=== PATIENT | female | born 1940 | race Caucasian/White ===

== ENCOUNTER 2017-09-30 12:24 | Emergency (ER) | payer BC ==
[2017-09-30 12:33] VITALS: BP 122/72
--- NOTE | 2017-09-30 12:44 | UC ---
Complaint Female HPI - HPI Summary HPI Summary: 77 yo female with the onset of urinary frequency and LOW BACK PAIN yesterday no f/c no abd pain no vag d/c no n/v - History Of Current Complaint Chief Complaint: UCGU Stated Complaint: FREQUENT URINATION, AND BACK PAIN Time Seen by Provider: 09/30/17 12:30 Hx Obtained From: Patient Onset/Duration: Gradual Onset, Lasting Hours Timing: Constant Severity Initially: Mild Severity Currently: Mild Pain Intensity: 4 Pain Scale Used: 0-10 Numeric Character: Dull Aggravating Factor(s): Nothing Associated Signs And Symptoms: Positive: Back Pain - Allergies/Home Medications Allergies/Adverse Reactions: Allergies Allergy/AdvReac Type Severity Reaction Status Date / Time Ibuprofen Allergy Severe "THE Verified 09/30/17 12:33 DOCTOR TOLD ME NOT TO TAKE IT" Home Medications: Home Medications Acetaminophen [Tylenol] 650 mg PO Q6H PRN 09/30/17 [History Confirmed 09/30/17] PMH/Surg Hx/FS Hx/Imm Hx Cardiovascular History: Hypertension Neurological History: CVA - Surgical History Surgical History: Yes Surgery Procedure, Year, and Place: knee surgery, skin cancer removal, TUBAL LIGATION - Family History Known Family History: Positive: Cardiac Disease, Hypertension - Social History Alcohol Use: None Substance Use Type: None Smoking Status (MU): Never Smoked Tobacco - Immunization History Most Recent Influenza Vaccination: fall 2016 Most Recent Tetanus Shot: unk Most Recent Pneumonia Vaccination: unk Review of Systems Constitutional: Negative Skin: Negative Eyes: Negative ENT: Negative Respiratory: Negative Cardiovascular: Negative Gastrointestinal: Negative Genitourinary: Frequency Motor: Negative Neurovascular: Negative Musculoskeletal: Myalgia - low back pain Neurological: Negative Psychological: Negative Is Patient Immunocompromised?: No All Other Systems Reviewed And Are Negative: Yes Physical Exam Triage Information Reviewed: Yes Appearance: Well-Appearing, No Pain Distress, Well-Nourished Vital Signs: Initial Vital Signs Temp 98.4 F 09/30/17 12:29 Pulse 64 09/30/17 12:29 Resp 16 09/30/17 12:29 BP 122/72 09/30/17 12:29 Pulse Ox 98 09/30/17 12:29 Eyes: Positive: Conjunctiva Clear ENT: Positive: Hearing grossly normal. Negative: Nasal congestion, Nasal drainage, Dental tenderness, Sinus tenderness Neck: Positive: Supple, Nontender, No Lymphadenopathy Respiratory: Positive: Lungs clear, Normal breath sounds, No respiratory distress, No accessory muscle use Cardiovascular: Positive: RRR, No Murmur Abdomen Description: Positive: Nontender, No Organomegaly, Soft. Negative: CVA Tenderness (R), CVA Tenderness (L) Musculoskeletal: Positive: ROM Intact, No Edema Neurological: Positive: Alert Psychological Exam: Normal Skin Exam: Normal Complaint Female Dx - Differential Dx/Diagnosis Provider Diagnoses: UTI Discharge - Discharge Plan Condition: Stable Disposition: HOME Prescriptions: Cephalexin CAP* [Keflex CAP*] 500 mg PO BID #10 cap Patient Education Materials: Urinary Tract Infection in Women (ED) Referrals: Beth Sagastume MD [Primary Care Provider] - 3 Days (if not better) Additional Instructions: I suspect a UTI recheck for new or worsening symptoms
[2017-09-30] MEDS ORDERED: Cephalexin CAP* 500 MG PO ONE (13:01)
--- NOTE | 2017-10-02 17:01 | UC ---
- Progress Note Progress Note: + UTI Aerococcus Await sensitivity no change Remington 10/02/17
== END 2017-09-30 13:11 | disposition home or self-care (01) ==
LOC: UCEAST 12:24
DX: N39.0 Urinary tract infection, site not specified (principal); M54.5 Low back pain; I10 Essential (primary) hypertension; Z86.73 Personal history of transient ischemic attack (TIA), and cerebral infarction without residual deficits; Z88.6 Allergy status to analgesic agent
CPT/HCPCS: 81003; 87077; 87086; 99212; A9270-GY; G0463

== ENCOUNTER 2018-02-14 13:04 | Observation (INO) | payer BC ==
[2018-02-14] MEDS ORDERED: Aspirin 81 mg CHEW TAB* 81 MG TAB.CHEW PO ONE (13:22)
[2018-02-14] MEDS ORDERED: Nitroglycerin TAB 0.4 MG* 0.4 MG TAB SL ONE (13:22)
[2018-02-14 13:41] LABS: ABS Basophils 0.1 10^3/ul (0-0.2); ABS Eosinophils 0.2 10^3/ul (0-0.6); ABS Lymphocytes 2.2 10^3/ul (1.0-4.8); ABS Monocytes 0.8 10^3/ul (0-0.8); ABS Neutrophils 4.2 10^3/ul (1.5-7.7); ABS Nucleated RBC 0 10^3/ul; Eosinophil % 2.1 % (0-6); Hematocrit 44 % (35-47); Hemoglobin 14.8 g/dl (12.0-16.0); Mean Corpuscular HGB Conc 34 g/dl (31-36); Mean Corpuscular Hemoglobin 32 pg (27-31); Mean Corpuscular Volume 94 fL (80-97); Mean Platelet Volume 9.2 um3 (7.4-10.4); Nucleated Red Blood Cells % 0.1; Platelet Count 171 10^3/ul (150-450); Red Blood Count 4.64 10^6/ul (4.0-5.4); Red Cell Distribution Width 14 % (10.5-15); White Blood Count 7.4 10^3/ul (3.5-10.8)
--- NOTE | 2018-02-14 13:56 | RAD ---
INDICATION: Chest pain COMPARISON: November 01, 2013 TECHNIQUE: An AP portable view obtained at 1339 hours is submitted. FINDINGS: Bones/Soft Tissues: There are no acute bony findings. Cardiomediastinal: The cardiomediastinal silhouette is mildly prominent. Lungs: There are no infiltrates. Pleura: There are no pleural effusions. Other: None IMPRESSION: NO ACTIVE DISEASE.
[2018-02-14 14:04] LABS: EGFR Non-African American 61.7 (>60)
[2018-02-14 14:09] LABS: INR 0.92 (0.77-1.02)
--- NOTE | 2018-02-14 17:38 | ED ---
Brian Mckeon Stephanie, scribed for Demario Jauregui MD on 02/14/18 at 1346 . HPI Chest Pain - HPI Summary HPI Summary: The pt is a 78 y/o F presenting to the ED with c/o CP that began at 13:07. The pt describes her pain as heaviness/ pressure and she states she feels a pain at the back of her shoulder. She states it feels as though there is an elephant sitting on her chest. She denies current CP, N/V/D and constipation. The pt was advised to go to the ED by her PCP due to an abnormal EKG. - History of Current Complaint Chief Complaint: EDChestPainROMI Time Seen by Provider: 02/14/18 13:21 Hx Obtained From: Patient Onset/Duration: Started Hours Ago, Resolved Timing: Intermittent Current Severity: None Pain Intensity: 0 Pain Scale Used: 0-10 Numeric Chest Pain Location: Diffuse Chest Pain Radiates: Yes Chest Pain Radiates To:: Shoulder Character: Heaviness Aggravating Factor(s): Nothing Alleviating Factor(s): Nothing Associated Signs and Symptoms: Positive: Negative - diarrhea, constipation, Chest Pain. Negative: Nausea, Vomiting - Allergy/Home Medications Allergies/Adverse Reactions: Allergies Allergy/AdvReac Type Severity Reaction Status Date / Time ibuprofen Allergy See Comment Verified 02/14/18 13:06 Home Medications: Home Medications Aspirin EC TAB* [Ecotrin EC Low Dose 81 MG*] 81 mg PO DAILY 02/14/18 [History Confirmed 02/14/18] Flecainide TAB(NF) 50 mg PO BID 02/14/18 [History Confirmed 02/14/18] Levothyroxine TAB* [Synthroid TAB*] 50 mcg PO QAM 02/14/18 [History Confirmed ] Metoprolol Succinate XL TAB* [Toprol XL TAB*] 50 mg PO BID 02/14/18 [History Confirmed 02/14/18] Ramipril CAP* [Altace CAP*] 10 mg PO BID 02/14/18 [History Confirmed 02/14/18] Simvastatin (NF) [Zocor (NF)] 40 mg PO DAILY 02/14/18 [History Confirmed ] amLODIPine TAB* [Norvasc 5 mg TAB*] 5 mg PO DAILY 02/14/18 [History Confirmed ] PMH/Surg Hx/FS Hx/Imm Hx Endocrine/Hematology History: Reports: Hx Thyroid Disease Denies: Hx Diabetes Cardiovascular History: Reports: Hx Hypertension, Other Cardiovascular Problems/ Disorders - A-FIB Denies: Hx Congestive Heart Failure, Hx Pacemaker/ICD Respiratory History: Denies: Hx Chronic Obstructive Pulmonary Disease (COPD) GI History: Reports: Other GI Disorders - HYPERCHLESTEROLEMIA History: Denies: Hx Renal Disease Sensory History: Denies: Hx Hearing Aid Neurological History: Reports: Other Neuro Impairments/Disorders - right cerebellar bleed Psychiatric History: Denies: Hx Panic Disorder - Cancer History Cancer Type, Location and Year: SKIN CA REMOVAL nose Hx Chemotherapy: No Hx Radiation Therapy: No - Surgical History Surgery Procedure, Year, and Place: knee surgery, skin cancer removal, TUBAL LIGATION Infectious Disease History: No Infectious Disease History: Denies: Traveled Outside the [place] in Last 30 Days - Family History Known Family History: Positive: Cardiac Disease, Hypertension - Social History Occupation: Employed Full-time Lives: With Family Alcohol Use: None Hx Substance Use: No Substance Use Type: Reports: None Hx Tobacco Use: No Smoking Status (MU): Never Smoked Tobacco Have You Smoked in the Last Year: No Review of Systems Negative: Fever Positive: Chest Pain Gastrointestinal: Negative - constipation Negative: Vomiting, Diarrhea, Nausea Positive: Other - shoulder pain All Other Systems Reviewed And Are Negative: Yes Physical Exam - Summary Physical Exam Summary: VITAL SIGNS: Reviewed. GENERAL: Patient is an obese FEMALE who is lying comfortable in the stretcher. Patient is not in any acute respiratory distress. HEAD AND FACE: No signs of trauma. No ecchymosis, hematomas or skull depressions. No sinus tenderness. EYES: PERRLA, EOMI x 2, No injected conjunctiva, no nystagmus. EARS: Hearing grossly intact. Ear canals and tympanic membranes are within normal limits. MOUTH: Oropharynx within normal limits. NECK: Supple, trachea is midline, no adenopathy, no JVD, no carotid bruit, no c- spine tenderness, neck with full ROM. CHEST: Symmetric, no tenderness at palpation LUNGS: Clear to auscultation bilaterally. No wheezing or crackles. CVS: Regular rate and rhythm, S1 and S2 present, no murmurs or gallops appreciated. ABDOMEN: Soft, non-tender. No signs of distention. No rebound no guarding, and no masses palpated. Bowel sounds are normal. EXTREMITIES: FROM in all major joints, no edema, no cyanosis or clubbing. NEURO: Alert and oriented x 3. No acute neurological deficits. Speech is normal and follows commands. SKIN: Dry and warm Triage Information Reviewed: Yes Vital Signs On Initial Exam: Initial Vitals Temp Pulse Resp BP Pulse Ox 98.1 F 99 16 134/102 96 02/14/18 13:05 02/14/18 13:05 02/14/18 13:05 02/14/18 13:05 02/14/18 13:05 Vital Signs Reviewed: Yes Diagnostics - Vital Signs Vital Signs Temp Pulse Resp BP Pulse Ox 02/14/18 13:05 98.1 F 99 16 134/102 96 - Laboratory Lab Results: Lab Results 02/14/18 02/14/18 02/14/18 Range/Units 13:28 13:29 13:29 WBC 7.4 (3.5-10.8) 10^3/ul RBC 4.64 (4.0-5.4) 10^6/ul Hgb 14.8 (12.0-16.0) g/dl Hct 44 (35-47) % MCV 94 (80-97) fL MCH 32 H (27-31) pg MCHC 34 (31-36) g/dl RDW 14 (10.5-15) % Plt Count 171 (150-450) 10^3/ul MPV 9.2 (7.4-10.4) um3 Neut % (Auto) 56.6 (38-83) % Lymph % (Auto) 30.0 (25-47) % [place] % (Auto) 10.4 H (0-7) % Eos % (Auto) 2.1 (0-6) % Baso % (Auto) 0.9 (0-2) % Absolute Neuts (auto) 4.2 (1.5-7.7) 10^3/ul Absolute Lymphs (auto) 2.2 (1.0-4.8) 10^3/ul Absolute Monos (auto) 0.8 (0-0.8) 10^3/ul Absolute Eos (auto) 0.2 (0-0.6) 10^3/ul Absolute Basos (auto) 0.1 (0-0.2) 10^3/ul Absolute Nucleated RBC 0 10^3/ul Nucleated RBC % 0.1 INR (Anticoag Therapy) 0.92 (0.77-1.02) APTT 28.4 (26.0-36.3) seconds Sodium 140 (139-145) mmol/L Potassium 4.3 (3.5-5.0) mmol/L Chloride 107 (101-111) mmol/L Carbon Dioxide 26 (22-32) mmol/L Anion Gap 7 (2-11) mmol/L BUN 20 (6-24) mg/dL Creatinine 0.89 (0.51-0.95) mg/dL Est GFR ( Amer) 79.3 (>60) Est GFR (Non-Af Amer) 61.7 (>60) BUN/Creatinine Ratio 22.5 H (8-20) Glucose 131 H (70-100) mg/dL Lactic Acid (0.5-2.0) mmol/L Calcium 9.3 (8.6-10.3) mg/dL Magnesium 2.1 (1.9-2.7) mg/dL Total Bilirubin 0.60 (0.2-1.0) mg/dL AST 24 (13-39) U/L ALT 27 (7-52) U/L Alkaline Phosphatase 65 (34-104) U/L Total Creatine Kinase 103 (10-223) U/L CK-MB (CK-2) 1.5 (0.6-6.3) ng/mL Troponin I 0.00 (<0.04) ng/mL B-Natriuretic Peptide ( - 100) pg/mL Total Protein 6.9 (6.4-8.9) g/dL Albumin 4.0 (3.2-5.2) g/dL Globulin 2.9 (2-4) g/dL Albumin/Globulin Ratio 1.4 (1-3) TSH 3.24 (0.34-5.60) mcIU/mL 02/14/18 02/14/18 02/14/18 Range/Units 13:29 13:29 16:17 WBC (3.5-10.8) 10^3/ul RBC (4.0-5.4) 10^6/ul Hgb (12.0-16.0) g/dl Hct (35-47) % MCV (80-97) fL MCH (27-31) pg MCHC (31-36) g/dl RDW (10.5-15) % Plt Count (150-450) 10^3/ul MPV (7.4-10.4) um3 Neut % (Auto) (38-83) % Lymph % (Auto) (25-47) % [place] % (Auto) (0-7) % Eos % (Auto) (0-6) % Baso % (Auto) (0-2) % Absolute Neuts (auto) (1.5-7.7) 10^3/ul Absolute Lymphs (auto) (1.0-4.8) 10^3/ul Absolute Monos (auto) (0-0.8) 10^3/ul Absolute Eos (auto) (0-0.6) 10^3/ul Absolute Basos (auto) (0-0.2) 10^3/ul Absolute Nucleated RBC 10^3/ul Nucleated RBC % INR (Anticoag Therapy) (0.77-1.02) APTT (26.0-36.3) seconds Sodium (139-145) mmol/L Potassium (3.5-5.0) mmol/L Chloride (101-111) mmol/L Carbon Dioxide (22-32) mmol/L Anion Gap (2-11) mmol/L BUN (6-24) mg/dL Creatinine (0.51-0.95) mg/dL Est GFR ( Amer) (>60) Est GFR (Non-Af Amer) (>60) BUN/Creatinine Ratio (8-20) Glucose (70-100) mg/dL Lactic Acid 1.3 (0.5-2.0) mmol/L Calcium (8.6-10.3) mg/dL Magnesium (1.9-2.7) mg/dL Total Bilirubin (0.2-1.0) mg/dL AST (13-39) U/L ALT (7-52) U/L Alkaline Phosphatase (34-104) U/L Total Creatine Kinase (10-223) U/L CK-MB (CK-2) (0.6-6.3) ng/mL Troponin I 0.00 (<0.04) ng/mL B-Natriuretic Peptide 248 H ( - 100) pg/mL Total Protein (6.4-8.9) g/dL Albumin (3.2-5.2) g/dL Globulin (2-4) g/dL Albumin/Globulin Ratio (1-3) TSH (0.34-5.60) mcIU/mL 02/14/18 Range/Units 16:35 WBC (3.5-10.8) 10^3/ul RBC (4.0-5.4) 10^6/ul Hgb (12.0-16.0) g/dl Hct (35-47) % MCV (80-97) fL MCH (27-31) pg MCHC (31-36) g/dl RDW (10.5-15) % Plt Count (150-450) 10^3/ul MPV (7.4-10.4) um3 Neut % (Auto) (38-83) % Lymph % (Auto) (25-47) % [place] % (Auto) (0-7) % Eos % (Auto) (0-6) % Baso % (Auto) (0-2) % Absolute Neuts (auto) (1.5-7.7) 10^3/ul Absolute Lymphs (auto) (1.0-4.8) 10^3/ul Absolute Monos (auto) (0-0.8) 10^3/ul Absolute Eos (auto) (0-0.6) 10^3/ul Absolute Basos (auto) (0-0.2) 10^3/ul Absolute Nucleated RBC 10^3/ul Nucleated RBC % INR (Anticoag Therapy) (0.77-1.02) APTT (26.0-36.3) seconds Sodium (139-145) mmol/L Potassium (3.5-5.0) mmol/L Chloride (101-111) mmol/L Carbon Dioxide (22-32) mmol/L Anion Gap (2-11) mmol/L BUN (6-24) mg/dL Creatinine (0.51-0.95) mg/dL Est GFR ( Amer) (>60) Est GFR (Non-Af Amer) (>60) BUN/Creatinine Ratio (8-20) Glucose (70-100) mg/dL Lactic Acid (0.5-2.0) mmol/L Calcium (8.6-10.3) mg/dL Magnesium (1.9-2.7) mg/dL Total Bilirubin (0.2-1.0) mg/dL AST (13-39) U/L ALT (7-52) U/L Alkaline Phosphatase (34-104) U/L Total Creatine Kinase (10-223) U/L CK-MB (CK-2) (0.6-6.3) ng/mL Troponin I 0.00 (<0.04) ng/mL B-Natriuretic Peptide ( - 100) pg/mL Total Protein (6.4-8.9) g/dL Albumin (3.2-5.2) g/dL Globulin (2-4) g/dL Albumin/Globulin Ratio (1-3) TSH (0.34-5.60) mcIU/mL Result Diagrams: 02/14/18 13:29 02/14/18 13:29 Lab Statement: Any lab studies that have been ordered have been reviewed, and results considered in the medical decision making process. - Radiology CXR Xray Interpretation: No Acute Changes Radiology Interpretation Completed By: Radiologist - NO ACTIVE DISEASE. ED physician has reviewed this report. - EKG 13:05 Cardiac Rate: NL - 95 BPM EKG Rhythm: Atrial Flutter EKG Interpretation: ED physician discussed with Warner, agrees there are no ST elevations Chest Pain Course/Dx - Course Assessment/Plan: This patient is a 78-year-old female who presents to the emergency department after she was sent from the primary care physician with a chief complaint of chest pressure. She reports that she feels like something is sitting on top of her chest. The pains is intermittent lasting for 5-10 minutes. She denies any diaphoresis, shortness of breath, palpitations or dizziness. She has past medical history for atrophy relation, diabetes mellitus type 2, dyslipidemia and hypertension. Other arrival to the emergency department the patient denies any chest pain. Initially the patient was placed in a director of early childhood education, IV access was obtained, the patient was given aspirin and nitroglycerin. EKG showed an atrial flutter at 92 bpm. I discussed the EKG with Dr. Canales from cardiology and he agrees that there is no ST elevations. Blood test results without any significant abnormality except for BNP of 248. The troponin is 0.00. Chest x-ray impression: No active cardiopulmonary disease. Because of the symptoms and presentation and comorbidities I discussed the case with Dr Woodward from the hospitalist services on accepted the patient for admission. The patient is hemodynamically stable alert and oriented 3 - Chest Pain Differential Diagnosis/HQI/PQRI: Acute CO, ACS, Angina, CHF, Chest Wall, GI Disease, Lower Respiratory Infection - Diagnoses Provider Diagnoses: Chest pain, Chest pain with moderate risk of acute coronary syndrome - Provider Notifications Discussed Care Of Patient With: Austin Woodward Time Discussed With Above Provider: 16:24 Instructed by Provider To: Admit As Inpatient Discharge - Sign-Out/Discharge Documenting (check all that apply): Discharge/Admit/Transfer - Admit - Discharge Plan Condition: Stable Disposition: ADMITTED TO [facility] Referrals: Beth Sagastume MD [Primary Care Provider] - - Billing Disposition and Condition Condition: STABLE Disposition: [facility] [place] [facility] [place] The documentation as recorded by the Brian moss Stephanie accurately reflects the service I personally performed and the decisions made by , Demario Jauregui MD.
[2018-02-14] MEDS: Flecainide TAB* 100 MG PO SCH (21:14)
[2018-02-14] MEDS: Metoprolol Succinate XL TAB* 50 MG PO SCH (21:14)
[2018-02-14] MEDS: Ramipril CAP* 10 MG PO SCH (21:14)
[2018-02-14] MEDS: Heparin VIAL(*) 5000 UNITS/ML VIAL (FIVE THOUSAND) SUBCUT SCH (21:15)
[2018-02-15 01:22] LABS: Urine Appearance Clear; Urine Blood Negative (Negative); Urine Color Yellow; Urine Ketones Negative (Negative); Urine Protein Negative (Negative); Urine Specific Gravity 1.016 (1.010-1.030); Urine Urobilinogen Negative (Negative)
--- NOTE | 2018-02-15 01:28 | HP ---
CC: Dr. Beth Sagastume; Dr. Lary Lynn * HISTORY AND PHYSICAL: DATE OF ADMISSION: 02/14/18 PRIMARY CARE PROVIDER: Dr. Beth Sagastume. PRIMARY REMOTE ENCODING CENTER MANAGER: Dr. Lynn. ATTENDING PHYSICIAN: Dr. Austin Woodward * (dictated by Nayeli Galicia NP). CHIEF COMPLAINT: Palpitations, chest heaviness, and pressure. HISTORY OF PRESENT ILLNESS: Ms. Guevara is a 78-year-old female with past medical history significant for hypothyroidism, hypertension, atrial fibrillation, COPD, hyperlipidemia, and a right cerebellar bleed, who was seeing her primary care provider today with complaints of palpitations and chest discomfort. She had an abnormal EKG and was recommended to come to the emergency room for further evaluation. The patient denies any recent fever, chills, cough, shortness of breath, nausea, vomiting, diarrhea, diaphoresis, urinary symptoms. She reports intermittent palpitations and intermittent chest pressure and heaviness that she notices most when she is resting. She is unsure if she is having this discomfort while she is ambulating. The patient started having chest discomfort today at approximately 1307 and also some discomfort into the back of her shoulders. Due to this the patient was referred to the emergency room by her PCP. While in the emergency room, the patient's EKG was discussed with Dr. Canales, who felt that she did not have ST elevation. She continued to intermittently have chest discomfort. She had labs that were unremarkable. She had 2 troponins, that were 0.00. Her chest x-ray is showing no active cardiopulmonary disease. Hospitalists were asked to evaluate the patient for admission. PAST MEDICAL HISTORY: 1. Hypothyroidism. 2. Hypertension. 3. Atrial fibrillation. 4. COPD. 5. Hyperlipidemia. 6. Right cerebellar bleed. PAST SURGICAL HISTORY: 1. Status post excision of skin carcinoma from her nose. 2. Status post tubal ligation. HOME MEDICATIONS: Include: 1. Amlodipine 5 mg oral daily. 2. Aspirin 81 mg oral daily. 3. Metoprolol succinate 50 mg oral twice daily. 4. Levothyroxine 50 mcg oral daily. 5. Simvastatin 40 mg oral daily. 6. Ramipril 10 mg oral twice daily. 7. Flecainide 50 mg oral twice daily. ALLERGIES: The patient is told by her log inspector to not take IBUPROFEN back when she was taking anticoagulants. FAMILY HISTORY: The patient's brother at 49 from an [place]. Her father passed at age 62 from an [place] and an sister had an [place] at age 51. She denies any family history of diabetes mellitus or cancer. SOCIAL HISTORY: The patient denies tobacco or recreational drug use. She rarely drinks alcohol. Her , Gómez Guevara or her son, Walker Guevara, will be her surrogate decision makers in the event she is unable to make decisions for herself. REVIEW OF SYSTEMS: I performed an 11-point review of systems. All the pertinent positives and negatives are mentioned in the history of present illness. The remaining review of systems are negative. PHYSICAL EXAMINATION GENERAL APPEARANCE: The patient is alert, pleasant and appears to be in no acute distress. VITAL SIGNS: Temperature 98.1, heart rate 97, respiratory rate 19, O2 sat 96% on room air, blood pressure 122/99. HEENT: Normocephalic, atraumatic. Pupils are equal and reactive to light. Extraocular movements are intact. RESPIRATORY: There is no accessory muscle use. The lungs are clear to auscultation bilateral. CARDIOVASCULAR: Regular rate and rhythm. S1 and S2 present. There are no murmurs, rubs, or gallops heard. ABDOMEN: Soft, nontender, nondistended. Bowel sounds present x4. EXTREMITIES: There is no lower extremity edema. DP and PT pulses are 2+ and symmetric. MUSCULOSKELETAL: There is no clubbing or cyanosis noted. The patient exhibits good strength in all extremities. She does have some mild reproduction of her chest pain on the right lower sternal border. NEUROLOGIC: The patient is alert and oriented x4. Cranial nerves II through XII are grossly intact. PSYCHOLOGICAL: The patient is calm and cooperative. SKIN: There are no rashes or abnormalities seen. The patient does have a small area of ecchymosis to her left medial calf. DIAGNOSTIC STUDIES/LABORATORY DATA: Sodium 140, potassium 4.3, chloride 107, CO2 26, BUN 20, creatinine 0.89, glucose 131. White blood cell count 7.4, hemoglobin 14.8, hematocrit 44, and platelet count 171. BNP 248. Troponin 0.00 x2. TSH 3.24. EKG shows an atrial flutter and what appears to be a right bundle-branch block. When compared to previous EKG from 11/01/13, the EKG is similar with the exception at that time, she appeared to be in atrial fibrillation with a faster rate. Chest x-ray from today. Radiologist's impression: No active cardiopulmonary disease. IMPRESSION: Ms. Guevara is a 78-year-old female with past medical history significant for hypothyroidism, hypertension, atrial fibrillation, chronic obstructive pulmonary disease, hyperlipidemia, and right cerebellar bleed who presented to the emergency room from her primary care provider's office with complaints of palpitations and chest tightness. The patient will be admitted as an observation for chest pain, rule out acute coronary syndrome. ASSESSMENT/PLAN: 1. Chest tightness and pressure. The patient has a VINCE score of 3. She will be admitted to rule out acute coronary syndrome. She has had two negative troponins at this time. I will repeat another troponin 3 hours after the last one. We will get another EKG in the morning. She will undergo a nuclear chemical stress test in the morning. We will check fasting lipids in the morning. She will be continued on aspirin. She his already on a beta-pavel and a statin. It is to note that the EKG was discussed with Dr. Canales with Interventional Radiology, who felt that she did not have ST elevation. She will have a heart-healthy diet and be n.p.o. after midnight for her stress test in the morning. 2. Hypertension. The patient is normotensive in the ER. She will be continued on her home metoprolol succinate, ramipril, and amlodipine. 3. Atrial fibrillation. The patient's heart rate is currently controlled. She will be continued on her home metoprolol succinate, flecainide, and aspirin. The patient has not been anticoagulated since approximately 4 years ago when she had a right cerebellar bleed and was taken off of the warfarin by Dr. Lynn. 4. Chronic obstructive pulmonary disease. The patient does not take maintenance medications, has no sign of chronic obstructive pulmonary disease exacerbation at this time. 5. Hypothyroidism. The patient will be continued on her home levothyroxine. Her TSH is 3.24 today. 6. Fluids, electrolytes, and nutrition. She will be on a heart-healthy diet n.p.o. after midnight. 7. Code status. Full code. 8. DVT prophylaxis. She is a high risk and will have subcu heparin. 9. Disposition: Observation. TIME SPENT: Time for this admission was approximately 60 minutes, greater than half of that was spent [id number] with the patient discussing medications, past medical history, the events leading up to her arrival today and performing a physical examination. The case has been reviewed with the attending, Dr. Woodward, who agrees with the plan of care. Reviewed by STEPHY GAMBINO 02/15/18 1342 [id number]/[facility] #: [id number] SHAUN
[2018-02-15] MEDS: Heparin VIAL(*) 5000 UNITS/ML VIAL (FIVE THOUSAND) SUBCUT SCH (05:12)
[2018-02-15] MEDS ORDERED: Levothyroxine TAB* 50 MCG TAB PO SCH (06:00)
[2018-02-15] MEDS ORDERED: Atorvastatin* 20 MG TAB PO SCH (09:00)
[2018-02-15] MEDS ORDERED: amLODIPine TAB* 5 MG PO SCH (09:00)
[2018-02-15] MEDS ORDERED: Regadenoson* 0.4 MG/5 ML SYRINGE ONE (09:18)
[2018-02-15] MEDS ORDERED: Aminophylline IV* 25 MG/ML 10 ML VIAL ONE (09:18)
[2018-02-15 11:24] VITALS: BP 135/84
--- NOTE | 2018-02-15 11:25 | RAD ---
Edited for charges. INDICATION: Chest pain COMPARISON: June 08, 2008 TECHNIQUE: A single day SPECT protocol was utilized. Rest images were acquired following the intravenous injection of 10.4 millicuries of technetium 99m tetrofosmin. Pharmacologic stress images were acquired following the intravenous administration of 25.7 millicuries of technetium 99m tetrofosmin. FINDINGS: There are no defects of the stress-induced or fixed nature. The cardiac chamber size is normal. There are no wall motion abnormalities. The ejection fraction is calculated at 58 percent during stress. IMPRESSION: NO DEFECTS OR STRESS-INDUCED OR FIXED NATURE. ASSESSMENT: LOW-RISK Based on imaging criteria from ACC/AHA 2002 Guideline Update for the Management of Patients With Chronic Stable Angina Table 23. Noninvasive Risk Stratification. MTDD
[2018-02-15] MEDS: Ramipril CAP* 10 MG PO SCH (11:50)
[2018-02-15] MEDS: Metoprolol Succinate XL TAB* 50 MG PO SCH (11:50)
[2018-02-15] MEDS: Flecainide TAB* 100 MG PO SCH (11:55)
[2018-02-15] MEDS ORDERED: Aspirin EC TAB* 81 MG TAB.EC PO SCH (21:00)
--- NOTE | 2018-02-16 04:18 | DS ---
CC: Dr. Sagastume; Dr. Lynn DISCHARGE SUMMARY: DATE OF ADMISSION: DATE OF DISCHARGE: 02/15/18 HISTORY: This 78-year-old woman presented with chest pressure. The patient had a routine appointmen t with her primary care physician, Dr. Sagastume. She mentioned to Dr. Sagastume that she had chest pres sure at times, it was not during the visit. She stated this has been off and on possibly for months she thinks. It is more common when lays down and goes to bed because she would notice things at that time, which she might not notice since she was active and busy. The patient was admitted to a telemetry unit. She had 4 troponin levels, all of which were within no rmal limits. She had a nuclear cardiac stress test, which showed no defects of a stress-induced or f ixed nature. Her ejection fraction by nuclear scan was calculated 58%. My clinical impression that the chest pressure was noncardiac. The patient remained in atrial flutter with variable block throughout her hospital stay. Heart rate, however, was mainly in the 90s and adequately controlled. FINAL DIAGNOSES: 1. Atypical chest pressure. 2. Persistent atrial fibrillation/flutter. 3. Hypothyroidism. 4. Hypertension. 5. Chronic obstructive pulmonary disease. 6. Hyperlipidemia. DISCHARGE MEDICATIONS: 1. Amlodipine 5 mg daily. 2. Aspirin 81 mg daily. 3. Metoprolol succinate 50 mg b.i.d. 4. Levothyroxine 50 mcg daily. 5. Flecainide 50 mg b.i.d. 6. Simvastatin 40 mg daily. 7. Ramipril 10 mg daily. [id number]/[facility] #: [id number]
== END 2018-02-15 13:20 | disposition home or self-care (01) ==
LOC: ED 13:04 → MEDTELE 17:06
PROVIDERS: ADMIT Internal Medicine; ATTEND Internal Medicine
DX: R07.89 Other chest pain (principal); I48.91 Unspecified atrial fibrillation; E03.9 Hypothyroidism, unspecified; I10 Essential (primary) hypertension; J44.9 Chronic obstructive pulmonary disease, unspecified; E78.5 Hyperlipidemia, unspecified; Z79.899 Other long term (current) drug therapy; Z79.82 Long term (current) use of aspirin; R94.31 Abnormal electrocardiogram [ECG] [EKG]
CPT/HCPCS: 36415; 71045; 78452; 80053; 80061; 81003; 81015; 82550; 82553; 83605; 83735; 83880; 84443; 84484; 85025; 85610; 85730; 87086; 93005; 93017; 96372; 99284; A9270-GY; A9502; G0378; J0280; J1644; J2785

== ENCOUNTER 2018-05-02 07:33 | Observation (INO) | payer BC, MEDICARE ==
[2018-05-02] MEDS ORDERED: ceFAZolin 2 GM PREMIX (*) 2 GM/50 ML BAG IVPB ONE (08:00)
[2018-05-02 08:35] LABS: ABS Basophils 0.1 10^3/ul (0-0.2); ABS Eosinophils 0.1 10^3/ul (0-0.6); ABS Lymphocytes 2.2 10^3/ul (1.0-4.8); ABS Monocytes 0.7 10^3/ul (0-0.8); ABS Neutrophils 4.3 10^3/ul (1.5-7.7); ABS Nucleated RBC 0 10^3/ul; Eosinophil % 1.6 % (0-6); Hematocrit 45 % (35-47); Hemoglobin 15.1 g/dl (12.0-16.0); Lymphocyte % 29.9 % (25-47); Mean Corpuscular HGB Conc 33 g/dl (31-36); Mean Corpuscular Hemoglobin 32 pg (27-31); Mean Corpuscular Volume 95 fL (80-97); Mean Platelet Volume 9.5 um3 (7.4-10.4); Nucleated Red Blood Cells % 0.1; Platelet Count 144 10^3/ul (150-450); Red Blood Count 4.77 10^6/ul (4.00-5.40); Red Cell Distribution Width 14 % (10.5-15); White Blood Count 7.3 10^3/ul (3.5-10.8)
[2018-05-02 08:44] LABS: INR 0.92 (0.77-1.02)
[2018-05-02 08:50] LABS: EGFR Non-African American 69.7 (>60)
[2018-05-02] MEDS ORDERED: fentaNYL* 50 MCG/ML 2 ML VIAL (100 MCG VIAL) ONE (10:03)
[2018-05-02] MEDS ORDERED: Midazolam* 1 MG/ML 5 ML VIAL (5 MG) ONE ×2 (10:04→11:04)
[2018-05-02] MEDS ORDERED: Iohexol 300* (CONTRAST) 10 ML SDV ONE ×2 (10:04→10:48)
[2018-05-02] MEDS ORDERED: Lidocaine 1%* 5 ML VIAL ONE (10:22)
[2018-05-02] MEDS ORDERED: Acetaminophen TAB* 325 MG PO PRN (13:09)
--- NOTE | 2018-05-02 15:54 | RAD ---
Indication: Pacemaker placement. Single frontal view of the chest performed at 1345 hours was reviewed. Comparison is made with previous exam dated February 14, 2018. No mediastinal shift is noted. Heart is of normal size and configuration. Lung dotson appear clear. Pacemaker leads are in place. No pneumothorax is noted. IMPRESSION: PACEMAKER LEADS ARE IN PLACE. NO PNEUMOTHORAX IS NOTED.
[2018-05-02] MEDS: ceFAZolin 1 GM VIAL(*) 1 GM in NS 0.9% 50 ML* 50 ML IVPB SCH (17:30)
[2018-05-02] MEDS ORDERED: Atorvastatin* 20 MG TAB PO SCH (21:00)
[2018-05-02] MEDS ORDERED: FLECAINIDE 50 MG PO SCH (21:00)
[2018-05-02] MEDS ORDERED: Aspirin EC TAB* 81 MG TAB.EC PO SCH (21:00)
[2018-05-02] MEDS: Metoprolol Succinate XL TAB* 50 MG PO SCH (21:06)
[2018-05-02] MEDS: Flecainide TAB* 100 MG PO SCH (22:00)
[2018-05-03] MEDS: ceFAZolin 1 GM VIAL(*) 1 GM in NS 0.9% 50 ML* 50 ML IVPB SCH ×2 (01:22→10:14)
[2018-05-03] MEDS ORDERED: Levothyroxine TAB* 50 MCG TAB PO SCH (06:00)
--- NOTE | 2018-05-03 08:15 | RAD ---
INDICATION: Status post device implant COMPARISON: Chest x-ray dated May 02, 2018 TECHNIQUE: PA and lateral views of the chest were obtained. FINDINGS: There is a left upper chest cardiac pacemaker with 2 leads overlying the heart and surgical skin diane unchanged since the previous chest x-ray. The heart and mediastinum are normal in size and contour. The lungs are grossly clear. There is no discernible pneumothorax. There is no evidence of large pleural effusion. Visualized bones are normal for the patient's age. There is no radiographic evidence of free air beneath the diaphragm IMPRESSION: NO RADIOGRAPHIC EVIDENCE OF ACUTE CARDIOPULMONARY DISEASE STATUS POST LEFT UPPER CHEST CARDIAC PACEMAKER IMPLANTATION.
[2018-05-03 08:48] VITALS: BP 137/77
[2018-05-03] MEDS ORDERED: Cholecalciferol TAB* 400 UNIT PO SCH (09:00)
[2018-05-03] MEDS ORDERED: amLODIPine TAB* 5 MG PO SCH (09:00)
[2018-05-03] MEDS ORDERED: Vitamin THERAPEUTIC TAB PO SCH (09:00)
[2018-05-03] MEDS: Metoprolol Succinate XL TAB* 50 MG PO SCH (09:08)
[2018-05-03] MEDS: Flecainide TAB* 100 MG PO SCH (09:08)
--- NOTE | 2018-05-03 22:10 | DS ---
CC: Dr. Beth Sagastume; Dr. Nathalie Lynn* DISCHARGE SUMMARY: DATE OF ADMISSION: 05/02/18 DATE OF DISCHARGE: 05/03/18 HISTORY OF PRESENT ILLNESS AND HOSPITAL COURSE: Ms. Guevara is a 78-year-old woman with a history of paroxysmal atrial flutter, on flecainide. The patient had a history of cerebral hemorrhage in the past and she is unable to be on anticoagulation. The patient has also been on metoprolol. She had a Holter monitor that showed a 10% burden of AFib, flutter and frequent PVCs. Her mean heart rate was 58 beats a minute with intermittent bradycardia and she was referred for dual- chamber pacemaker implantation to allow for more aggressive medical management of her tachyarrhythmias. On 05/02/18, the patient underwent implantation with a Medtronic MRI compatible pacemaker without complication. She felt well overnight. She was atrially pacing over 90% of the time. She has had no fevers, chills, shortness of breath , or pain at the incision. Really, no complaints. PAST MEDICAL HISTORY: The patient has a past medical history of paroxysmal atrial flutter, paroxysmal atrial fibrillation, hypertension, dyslipidemia, hypothyroid disease, hemorrhagic stroke, mitral insufficiency. PAST SURGICAL HISTORY: Includes tubal ligation and arthroscopy of the right knee. ALLERGIES: The patient has no known medication allergies. FAMILY HISTORY: The patient's father from stroke. Her mother at 89 years of age of unknown reasons. SOCIAL HISTORY: The patient is on the [employer] business. Nonsmoker. Occasional alcohol and caffeine intake. PHYSICAL EXAMINATION: On exam on the day of discharge, the patient's height is 5 feet 5 inches, weighs 244 pounds with a BMI of 41. Her blood pressure is 137/ 77, pulse rate was 60, temperature 98.3, oxygen saturation on room air 97% with a respiratory rate of 16 to 20. General Appearance: Short, overweight, older woman seated eating breakfast, appearing comfortable, in no acute distress. Psychologically, pleasant and cooperative. Neurologically, awake, alert and oriented to person, place, and time. Cranial nerves II through XII intact. Grossly normal sensory and motor function in the upper and lower extremities with normal gait. Skin: Warm and dry. No cyanosis. There are some dusky areas adjacent to the incision consistent with Bovie cautery, but no evidence of infection. No hematoma. HEENT: Pupils are equal, round. Mucous membranes are moist. Neck: Without thyromegaly or lymphadenopathy and no increased JVP. Lungs are clear with good effort. No wheezes, rales or rhonchi. Coronary: S1, S2 regular without murmurs. Abdomen: Overweight, nontender. Active bowel sounds and soft. Lower extremities are free of edema. LABORATORY DATA: Labs from 05/02/18, white count 7.3, hematocrit 45, platelets 144. INR of 0.92. PTT 21. Sodium 141, potassium 4.1, glucose 114, BUN 14, creatinine 0.8. Chest x-ray from 05/02/18 showed good lead placement and no pneumothorax. Chest x-ray from 05/03/18 showed good lead placement and no pneumothorax. Pacemaker interrogation on the day of discharge confirmed she had a Medtronic MRI compatible device. She atrially paces 95% of the time, ventricularly paces less than 1% of the time overnight. P-waves were sensed at 3.5 millivolts with an atrial lead impedance of 418 ohms and an atrial pacing threshold of 0.4 milliseconds at 0.5 volts. The ventricular lead had R-wave sensed at 12.1 millivolts with ventricular lead impedance of 684 ohms and a ventricular pacing threshold of 0.75 volts at 0.4 milliseconds. No dysrhythmias were noted overnight. Programming with change to AAIR/DDDR at a low rate of 60 beats a minute. In summary, the patient underwent successful pacemaker implantation without complications. She will be discharged on her home medications with the addition of Keflex and Tylenol. MEDICATIONS: Her home medications are as follows: 1. Tylenol 650 mg p.o. q.6 hours p.r.n. 2. Norvasc 5 mg a day. 3. Aspirin 81 mg a day. 4. Lipitor 20 mg q.h.s. 5. Keflex 500 mg t.i.d. for 4 days. 6. Vitamin D 400 units a day. 7. Flecainide 75 mg b.i.d. 8. Synthroid 50 mcg daily. 9. Toprol-XL 50 mg b.i.d. 10. Multivitamins with minerals. FOLLOWUP: She will follow up in our office in 1 week for a wound check, and written and verbal instructions have been provided to the patient about pacemaker care. [id number]/[facility] #: [id number] SHAUN
--- NOTE | 2018-05-17 10:31 | OP ---
DATE OF OPERATION: 05/02/18 - ROOM #439 DATE OF : 44 SURGEON: Marylu Platt MD PRE-OP DIAGNOSIS: Sick sinus syndrome. POST-OP DIAGNOSIS: Sick sinus syndrome. OPERATIVE PROCEDURE: Dual-chamber pacemaker implantation. ESTIMATED BLOOD LOSS: Less than 1 cc. COMPLICATIONS: None. DESCRIPTION OF PROCEDURE: The risks and benefits of the procedure had been discussed with the patient in the presence of her family in the office and on the day of implant. The patient was right-handed and the left subclavian fossa was prepped and draped in the usual sterile fashion. A time-out procedure was called. 10 cc of radiopaque dye was injected into the left upper extremity outlining the left axillary and left subclavian veins. Following this, 1% lidocaine was infused in the left subclavian fossa for local anesthesia in addition to Versed and fentanyl for sedation. Following the local anesthesia using a 10-blade knife, a 2-1/2 cm incision was made in the left subclavian fossa and using Bovie and blunt dissection, it was extended to the level of the pectoralis muscle. Additional lidocaine was infused inferiorly and medially and using blunt dissection, a small pocket was fashioned. Using a modified Seldinger technique, the left subclavian vein was cannulated and using fluoroscopic guidance, the guidewire was inserted. This procedure was repeated with the second guidewire. Using an introducer technique , the right ventricular lead was guided into the right ventricular apex and actively fixed in place. Pacing and sensing thresholds were good. Using the second guidewire and introducer technique, the right atrial lead was guided into the right atrial appendage, actively fixed in place and pacing and sensing thresholds were checked and found to be good. Lead position was checked and the leads were then sutured to the pocket using 0 silk suture. High pacing thresholds were checked. There was no diaphragmatic pacing. The pocket was then copiously irrigated. The leads were attached to the generator. The generator was then placed in the pocket. Pacing and sensing thresholds checked again and then the incision was closed using 2 layers of resorbable suture followed by diane and an external dressing. FINDINGS: The system is an MRI-compatible [employer] system. The device is a model W1DR01, serial number [id number]. The right atrial lead is a [employer], model 5076-52, serial number [id number]. The ventricular lead is a Medtronic, model 5076-58, serial number [id number]. P-waves were sensed at 2.9 millivolts with an atrial lead impedance of 610 ohms and an atrial pacing threshold of 0.5 volts at 0.5 milliseconds. The ventricular lead impedance was 944 ohms with R-waves sensed at 10.7 millivolts and ventricular pacing threshold of 0.6 volts at 0.5 milliseconds. The patient was hemodynamically stable during the procedure and on transfer to the floor. [id number]/[facility] #: [id number] [facility]Rich
== END 2018-05-03 12:15 | disposition home or self-care (01) ==
LOC: CHICATH 07:33 → MEDTELE 12:14
PROVIDERS: ADMIT Specialist; ATTEND Specialist
DX: I49.5 Sick sinus syndrome (principal); I48.0 Paroxysmal atrial fibrillation; Z79.01 Long term (current) use of anticoagulants; Z79.82 Long term (current) use of aspirin; I10 Essential (primary) hypertension
CPT/HCPCS: 36415; 71045; 71046; 80048; 85025; 85610; 85730; 93005; 96365; 96366; 99156; 99157; A9270-GY; C1785; C1898; G0378; J0690; J2250; J3010

== ENCOUNTER 2018-07-01 15:15 | Emergency (ER) | payer BC ==
[2018-07-01] MEDS ORDERED: Labetalol IV* 5 MG/ML 20 ML VIAL IV PUSH ONE (16:00)
--- NOTE | 2018-07-01 16:14 | ED ---
Hypertension - HPI Summary HPI Summary: A 78 y/o female presents to [facility] c/o hypertension since today. Shalini Lo NP , who told her to go to Dr. Andujar office where sent to CC for HTN and then told to come to the ED. She has a pacemaker. She states that she is fine. Dr. Lynn has been having difficulty controlling her flecainide. She has a blood clot in her left arm and had a CVA 4 years ago. She states to have a BP of about 160/[address] Naranjo's office [employer] but has a BP of 190/110 in the ED. She denies cold sweats, CP, SOB, RUSSELL, numbness, weakness, nausea, tingling and palpitations although she has had palpitations in the past. She has a PHx of A- fib, but denies HTN. She is a non-smoker and does not do drugs or drink alcohol. She takes flecainide, lodipine and Eliquis and cannot take ibuprofen. - History of Current Complaint Chief Complaint: EDHypertension Stated Complaint: HIGH BLOOD PRESSURE Time Seen by Provider: 07/01/18 15:30 Hx Obtained From: Patient Onset/Duration: Started Hours Ago, Still Present Timing: Constant Reported Blood Pressure Prior To Arrival: 160/107 - Allergies/Home Medications Allergies/Adverse Reactions: Allergies Allergy/AdvReac Type Severity Reaction Status Date / Time ibuprofen Allergy See Comment Verified 07/01/18 15:24 Home Medications: Home Medications Aspirin EC TAB* [Ecotrin EC Low Dose 81 MG*] 81 mg PO DAILY 07/01/18 [History Confirmed 07/01/18] Flecainide TAB* [Tambocor TAB*] 100 mg PO BID 07/01/18 [History Confirmed ] Metoprolol Succinate XL TAB* [Toprol XL TAB*] 50 mg PO QPM 07/01/18 [History Confirmed 07/01/18] Metoprolol Succinate XL TAB* [Toprol XL TAB*] 75 mg PO QAM 07/01/18 [History Confirmed 07/01/18] Multivitamins/Minerals TAB* [Theragran/minerals TAB*] 1 tab PO DAILY 07/01/18 [ History Confirmed 07/01/18] PMH/Surg Hx/FS Hx/Imm Hx Endocrine/Hematology History: Reports: Hx Thyroid Disease Denies: Hx Diabetes Cardiovascular History: Reports: Hx Hypercholesterolemia, Hx Hypertension, Other Cardiovascular Problems/Disorders - A-FIB Denies: Hx Angina, Hx Congestive Heart Failure, Hx Coronary Artery Disease, Hx Myocardial Infarction, Hx Pacemaker/ICD Respiratory History: Denies: Hx Asthma, Hx Chronic Obstructive Pulmonary Disease (COPD) GI History: Reports: Other GI Disorders - HYPERCHLESTEROLEMIA History: Denies: Hx Renal Disease Sensory History: Reports: Hx Contacts or Glasses Denies: Hx Hearing Aid Opthamlomology History: Reports: Hx Contacts or Glasses Neurological History: Reports: Other Neuro Impairments/Disorders - right cerebellar bleed Psychiatric History: Denies: Hx Panic Disorder - Cancer History Cancer Type, Location and Year: SKIN CA REMOVAL nose Hx Chemotherapy: No Hx Radiation Therapy: No - Surgical History Surgery Procedure, Year, and Place: knee surgery, skin cancer removal, TUBAL LIGATION Infectious Disease History: No Infectious Disease History: Denies: Traveled Outside the [place] in Last 30 Days - Family History Known Family History: Positive: Cardiac Disease, Hypertension - Social History Alcohol Use: Rare Hx Substance Use: No Substance Use Type: Reports: None Hx Tobacco Use: No Smoking Status (MU): Never Smoked Tobacco Have You Smoked in the Last Year: No Review of Systems Negative: Fever, Skin Diaphoresis Negative: Palpitations, Chest Pain Negative: Shortness Of Breath Negative: Nausea Negative: Weakness, Paresthesia, Numbness All Other Systems Reviewed And Are Negative: Yes Physical Exam - Summary Physical Exam Summary: Appearance: Well appearing, no pain distress Skin: warm, dry, reflects adequate perfusion Head/face: normal Eyes: EOMI, FREDDY ENT: mucous membranes moist Neck: supple, non-tender Respiratory: CTA, breath sounds present Cardiovascular: RRR, pulses symmetrical, pacemaker in left chest. Abdomen: non-tender, soft Bowel Sounds: present Musculoskeletal: normal, strength/ROM intact Neuro: normal, sensory motor intact, A&Ox3 Triage Information Reviewed: Yes Vital Signs On Initial Exam: Initial Vitals Temp Pulse Resp BP Pulse Ox 98.5 F 85 16 181/107 96 07/01/18 15:16 07/01/18 15:16 07/01/18 15:16 07/01/18 15:16 07/01/18 15:16 Vital Signs Reviewed: Yes Diagnostics - Vital Signs Vital Signs Temp Pulse Resp BP Pulse Ox 07/01/18 15:16 98.5 F 85 16 181/107 96 - Laboratory Result Diagrams: 07/01/18 16:08 18 16:08 Lab Statement: Any lab studies that have been ordered have been reviewed, and results considered in the medical decision making process. Re-Evaluation - Re-Evaluation First Eval Re-Evaluation Time: 16:55 Change: Improved Comment: Patients BP was 178/110. Ready for DC Hypertension Course/Dx - Course Course Of Treatment: Patient with history of hypertension and atrial fibrillation presents with uncontrolled hypertension that is asymptomatic. She currently has absolutely no symptoms. She recently was brought down on her amlodipine and metoprolol which likely is causative. I gave her oral labetalol here and will put her back on her old dosing of medications. She'll follow-up with her nurse practitioner [facility] [place] this week. - Diagnoses Differential Diagnosis/HQI PQRI: Endocrine Disorder, Hypertension, Hypertensive Crisis, Hypertensive Urgency Provider Diagnoses: Asymptomatic hypertension Discharge - Sign-Out/Discharge Documenting (check all that apply): Patient Departure - DC - Discharge Plan Condition: Stable Disposition: HOME Patient Education Materials: Low-Sodium Diet (ED), Hypertension (ED) Referrals: Beth Sagastume MD [Primary Care Provider] - Additional Instructions: Increase amlodipine to 10 mg per day. Increase metoprolol to twice daily. Call first thing in the morning to schedule follow-up with nurse erin Lo for reevaluation. Also follow-up with her primary care physician. Low- sodium diet. Return If worse, headache, chest pain, shortness of breath, new symptoms or other concerns. - Billing Disposition and Condition Condition: STABLE Disposition: Home - Attestation Statements Document Initiated by Scribe: Yes Documenting Scribe: Tobias Pope Provider For Whom Maral is Documenting (Include Credential): Davis Henderson MD Scribe Attestation: I, Tobias Pope, scribed for Davis Henderson MD on 07/01/18 at 1732. Scribe Documentation Reviewed: Yes Provider Attestation: The documentation as recorded by the Tobias moss accurately reflects the service I personally performed and the decisions made by me, Davis Henderson MD
[2018-07-01 16:28] LABS: ABS Basophils 0 10^3/ul (0-0.2); ABS Eosinophils 0.1 10^3/ul (0-0.6); ABS Lymphocytes 2.3 10^3/ul (1.0-4.8); ABS Monocytes 0.6 10^3/ul (0-0.8); ABS Neutrophils 3.6 10^3/ul (1.5-7.7); ABS Nucleated RBC 0 10^3/ul; Eosinophil % 1.4 % (0-6); Hematocrit 43 % (35-47); Hemoglobin 14.4 g/dl (12.0-16.0); Lymphocyte % 34.8 % (25-47); Mean Corpuscular HGB Conc 33 g/dl (31-36); Mean Corpuscular Hemoglobin 31 pg (27-31); Mean Corpuscular Volume 94 fL (80-97); Mean Platelet Volume 8.8 um3 (7.4-10.4); Nucleated Red Blood Cells % 0.1; Platelet Count 155 10^3/ul (150-450); Red Blood Count 4.58 10^6/ul (4.00-5.40); Red Cell Distribution Width 14 % (10.5-15); White Blood Count 6.6 10^3/ul (3.5-10.8)
[2018-07-01 16:50] LABS: EGFR Non-African American 70.8 (>60)
[2018-07-01] MEDS ORDERED: Labetalol TAB* 200 MG PO ONE (16:54)
[2018-07-01 17:15] VITALS: BP 167/110
== END 2018-07-01 17:13 | disposition home or self-care (01) ==
LOC: ED 15:15
DX: I10 Essential (primary) hypertension (principal); I48.91 Unspecified atrial fibrillation; Z86.73 Personal history of transient ischemic attack (TIA), and cerebral infarction without residual deficits; Z79.82 Long term (current) use of aspirin; E07.9 Disorder of thyroid, unspecified; E78.00 Pure hypercholesterolemia, unspecified; Z85.828 Personal history of other malignant neoplasm of skin
CPT/HCPCS: 36415; 80048; 84484; 85025; 96374; 99282; A9270-GY

== ENCOUNTER 2018-08-09 07:55 | Emergency (ER) | payer BC ==
[2018-08-09] MEDS ORDERED: DiMENhydriNATE IV* 50 MG/ML VIAL IV PUSH ONE (08:09)
[2018-08-09] MEDS ORDERED: NS 0.9% 1000 ML* 1,000 ML IV ONE (08:09)
[2018-08-09] MEDS ORDERED: Labetalol IV* 5 MG/ML 20 ML VIAL IV PUSH ONE (08:10)
--- NOTE | 2018-08-09 08:17 | ED ---
Dizziness - HPI Summary HPI Summary: Pt is a 78 y/o female who presents to the ED c/o dizziness. She states she woke up this morning to go to the bathroom and suddenly became dizzy. The dizziness is described as both lightheadedness and room-spinning, and is made worse with standing up. Pt had a hemorrhagic stroke 4 years ago, and states these symptoms are similar but less intense. She had a pacemaker put in 2 months ago and subsequently had a blood clot in her left arm. Pt is now on Eloquis. She denies any LOC, numbness, weakness, RUSSELL, difficulty with speech, or difficulty with hearing. PMHx HTN. - History Of Current Complaint Chief Complaint: EDDizziness Stated Complaint: DIZZINESS Time Seen by Provider: 08/09/18 08:05 Hx Obtained From: Patient, Family/Welder Tack - Son Onset/Duration: Suddenly Timing: Hours - This morning Character: Room Spinning, Lightheaded, Dizzy Aggravating Factor(s): Other - Standing up Alleviating Factor(s): Nothing Associated Signs And Symptoms: Positive: Negative Related History: Similar Episode/Dx as - hemorrhagic stroke 4 years ago - Allergies/Home Medications Allergies/Adverse Reactions: Allergies Allergy/AdvReac Type Severity Reaction Status Date / Time ibuprofen Allergy See Comment Verified 08/09/18 08:00 Home Medications: Home Medications Apixaban* [Eliquis*] 5 mg PO BID 08/09/18 [History] PMH/Surg Hx/FS Hx/Imm Hx Endocrine/Hematology History: Reports: Hx Thyroid Disease Denies: Hx Diabetes Cardiovascular History: Reports: Hx Hypercholesterolemia, Hx Hypertension, Other Cardiovascular Problems/Disorders - A-FIB Denies: Hx Angina, Hx Congestive Heart Failure, Hx Coronary Artery Disease, Hx Myocardial Infarction, Hx Pacemaker/ICD Respiratory History: Denies: Hx Asthma, Hx Chronic Obstructive Pulmonary Disease (COPD) GI History: Reports: Other GI Disorders - HYPERCHLESTEROLEMIA History: Reports: Hx Renal Disease - abnormal gfr Denies: Hx Dialysis Sensory History: Reports: Hx Contacts or Glasses Denies: Hx Hearing Aid Opthamlomology History: Reports: Hx Contacts or Glasses Neurological History: Reports: Other Neuro Impairments/Disorders - right cerebellar bleed Psychiatric History: Denies: Hx Panic Disorder - Cancer History Cancer Type, Location and Year: SKIN CA REMOVAL nose Hx Chemotherapy: No Hx Radiation Therapy: No - Surgical History Surgery Procedure, Year, and Place: knee surgery, skin cancer removal, TUBAL LIGATION,pacer, Infectious Disease History: No Infectious Disease History: Denies: Traveled Outside the [place] in Last 30 Days - Family History Known Family History: Positive: Cardiac Disease, Hypertension - Social History Alcohol Use: Rare Hx Substance Use: No Substance Use Type: Reports: None Hx Tobacco Use: No Smoking Status (MU): Never Smoked Tobacco Have You Smoked in the Last Year: No Review of Systems Negative: Other - hearing changes Neurological: Other - Dizziness, NEGATIVE: weakness, difficulty with speech Negative: Headache, Numbness All Other Systems Reviewed And Are Negative: Yes Physical Exam - Summary Physical Exam Summary: Appearance: Well appearing, no pain distress Skin: warm, dry, reflects adequate perfusion Head/face: normal Eyes: EOMI, FREDDY ENT: mucous membranes moist Neck: supple, non-tender Respiratory: CTA, breath sounds present Cardiovascular: RRR, pulses symmetrical, no murmur, pacer in left chest, no swelling in left arm, trace edema LLE Abdomen: non-tender, soft Bowel Sounds: present Musculoskeletal: normal, strength/ROM intact Neuro: sensory motor intact, A&Ox3, positive Donna-Hallpike to left, cranial nerves intact, cerebellar testing normal GCS: 15 Triage Information Reviewed: Yes Vital Signs On Initial Exam: Initial Vitals Temp Pulse Resp BP Pulse Ox 97.7 F 84 18 161/93 96 08/09/18 07:56 08/09/18 07:56 08/09/18 07:56 08/09/18 07:56 08/09/18 07:56 Vital Signs Reviewed: Yes Diagnostics - Vital Signs Vital Signs Temp Pulse Resp BP Pulse Ox 08/09/18 07:56 97.7 F 84 18 161/93 96 - Laboratory Result Diagrams: 08/09/18 08:32 08/09/18 08:32 Lab Statement: Any lab studies that have been ordered have been reviewed, and results considered in the medical decision making process. - CT Brain CT CT Interpretation Completed By: Radiologist - NO ACUTE INTRACRANIAL PATHOLOGY. CHRONIC SMALL VESSEL ISCHEMIC CHANGE. ED physician reviewed radiology report. - EKG 9:00 Cardiac Rate: Other Rate - Paced rhythm, 71 bpm EKG Rhythm: Sinus Rhythm ST Segment: Non-Specific Summary of EKG Findings: Wide complex, nl axis National Institutes Of Health - NIH Scale Level of Consciousness: Alert/Keenly Responsive Ask Patient the Month and His/Her Age: Both Correct Ask Pt to Open/Close Eyes and Strap Sewer/Release Non-Paretic Hand: Both Correctly Best Gaze (Only Horizontal Eye Movement): Normal Visual Field Testing: No Visual Loss Facial Paresis-Pt to Smile & Close Eyes or Grimace Symmetry: Normal/Symmetrical Motor Function - Right Arm: No Drift-Holds 10 Seconds Motor Function - Left Arm: No Drift-Holds 10 Seconds Motor Function - Right Leg: No Drift-Holds 10 Seconds Motor Function - Left Leg: No Drift-Holds 10 Seconds Limb Ataxia-Must be out of Proportion to Weakness Present: Absent Sensory (Use Pinprick to Test Arms/Legs/Trunk/Face): Normal Best Language (Describe Picture, Name Items): No Aphasia Dysarthria (Read Several Words): Normal Extinction and Inattention: No Abnormality Total Score: 0 Re-Evaluation - Re-Evaluation First Eval Re-Evaluation Time: 09:35 Change: Unchanged Comment: Pt feels better when lying flat. Performed Rose maneuvers. Dizzy Course/Dx - Course Course Of Treatment: Patient with abrupt onset of rotational dizziness with change of position. Blood pressure slightly elevated. She does have a history of intracerebral hemorrhage in the past. She did have a recent CT angiogram of the neck 1 week ago which was negative. She has chronic atrial fibrillation that is treated with oral anticoagulant. Hallpike test was positive to the left. Patient was treated with oral hydration, IV Dramamine with significant improvement. She was then run through EPLY maneuvers. She was feeling much better and is discharged in good condition. - Diagnoses Differential Diagnosis/HQI/PQRI: Benign Paroxysmal Positional Vertigo, Medication Reaction, Metabolic Abnormality, Transient Ischemic Attack, Other - CVA Provider Diagnoses: Vertigo, Elevated blood pressure reading Discharge - Sign-Out/Discharge Documenting (check all that apply): Patient Departure - Discharge - Discharge Plan Condition: Improved Disposition: HOME Prescriptions: Meclizine HCl [Dramamine Less Drowsy] 25 mg PO Q4H PRN #30 tablet PRN Reason: Dizziness Patient Education Materials: Vertigo (ED) Referrals: Beth Sagastume MD [Primary Care Provider] - Additional Instructions: EPLY maneuvers as needed. Do not drive, use stairs today. Be careful with changing position especially bending or stooping. Drink plenty of fluids. Return with double vision, blurred vision, difficulty with speech, numbness/ weakness, worse, new symptoms or other concerns. Call Your primary care physician today to schedule prompt follow-up. - Billing Disposition and Condition Condition: IMPROVED Disposition: Home - Attestation Statements Document Initiated by Scribe: Yes Documenting Scribe: Vanna Lane Provider For Whom Scribe is Documenting (Include Credential): Davis Henderson MD Scribe Attestation: Vanna Mckeon, scribed for Davis Henderson MD on 08/09/18 at 0957. Scribe Documentation Reviewed: Yes Provider Attestation: The documentation as recorded by the Vanna moss accurately reflects the service I personally performed and the decisions made by Davis lujan MD
[2018-08-09 08:44] LABS: ABS Basophils 0 10^3/ul (0-0.2); ABS Eosinophils 0.1 10^3/ul (0-0.6); ABS Lymphocytes 1.8 10^3/ul (1.0-4.8); ABS Monocytes 0.5 10^3/ul (0-0.8); ABS Neutrophils 4.9 10^3/ul (1.5-7.7); ABS Nucleated RBC 0 10^3/ul; Eosinophil % 0.9 % (0-6); Hematocrit 46 % (35-47); Hemoglobin 15.3 g/dl (12.0-16.0); Lymphocyte % 24.8 % (25-47); Mean Corpuscular HGB Conc 33 g/dl (31-36); Mean Corpuscular Hemoglobin 32 pg (27-31); Mean Corpuscular Volume 95 fL (80-97); Mean Platelet Volume 9.2 fL (7.4-10.4); Nucleated Red Blood Cells % 0; Platelet Count 159 10^3/ul (150-450); Red Blood Count 4.86 10^6/ul (4.00-5.40); Red Cell Distribution Width 14 % (10.5-15); White Blood Count 7.3 10^3/ul (3.5-10.8)
[2018-08-09 08:49] LABS: INR 1.43 (0.77-1.02)
--- OUTSIDE RECORDS SUMMARY | 2018-08-09 08:51 | XMS REPORT ---
:1940 External Reference #:[id number] Author Organization [facility] Address [address] [place] [address] [place] [address] Phone [phone] Care Team Providers Name Role Phone Beth Sagastume MD Primary Care Physician Unavailable Payers Type Date Identification Numbers Payment Provider Subscriber Commercial Effective: Policy Number: BS Rajani Ary Giltimothy 2013 [id number] PayID: [id number] [address] [address] [place] [address] Medigap Part B Effective: 2009 Policy Number: BS Rajani Ary Candelaria [id number] Expires: 2013 PayID: [id number] [address] [address] [place] [address] Problems Date Description Provider Status Onset: 01/10/2012 Electrocardiogram abnormal Nathalie Lynn M.D. Active Onset: 01/10/2012 Atrial fibrillation Nathalie Lynn M.D. Active Onset: 01/10/2012 Mitral valve disorder Nathalie Lynn M.D. Active Onset: 01/10/2012 Benign essential hypertension Nathalie Lynn M.D. Active Onset: 11/27/2013 Essential hypertension Nathalie Lynn M.D. Active Onset: 11/27/2013 Mixed hyperlipidemia Nathalie Lynn M.D. Active Onset: 12/11/2013 Cerebral hemorrhage ISAÍAS Nuno Active Onset: 02/15/2018 Chest pain Moody Pearson M.D. Active Onset: 02/15/2018 Persistent atrial fibrillation Moody Pearson M.D. Active Onset: 02/15/2018 Hypothyroidism Moody Pearson M.D. Active Onset: 07/16/2018 Cortical hemorrhage Bryan Naranjo M.D. Active Onset: 05/17/2018 Paroxysmal atrial fibrillation Marylu Platt M.D. Active Onset: 05/17/2018 Deep venous thrombosis of upper Marylu Platt M.D. Active extremity Onset: 05/13/2018 Cardiac pacemaker in situ Marylu Platt M.D. Active Onset: 05/13/2018 Sinus node dysfunction Marylu Platt M.D. 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 daily (take along with a 50mg tab) Eliquis 05/14 Active Tablets 5mg 180ta 1 by Marylu eduardo mouth Lc, twice a M.D. day Norvasc 08/31 Active Tablets 5mg 90tab 2 tabs by Nathalie s mouth S. daily Ellen Lynn Flecainide Acetate 02/11 Active Tablets 50mg 180ta 1 tablets Nathalie bs twice a S. day (take Maghaydah with 100 , M.D. mg tabs) Metoprolol Succinate 04/25 Active Tablets 50mg 75tab 1 tablet Qutaybeh ER 24HR s by mouth [facility]. [facility]. Multivitamins Active Tablets 1 po qd Vitamin D Active Tab 400Iu 1 po daily (when pt. remembers ) Zocor Active Tablets 40mg 90tab take one s tablet by S. mouth [facility] every , M.D. night at bedtime Levothyroxine Sodium Active Tablets 50mcg Brian, Kathe Valium 12/02 Hx Tablets 2mg 2tabs take 1 one hour Jaci, - prior to M.D. 08/30 mri, january repeat x 1 if not sedated and still anxious. Altace 01/21 Hx Capsules 10mg 180ca 1 po bid [facility] , M.DChema Metoprolol Succinate 01/21 Hx Tablets 25mg 60tab 1 po bid Qutaybeh ER 24HR s S. - Maghaydah 04/25 , M.D. Altace 11/26 Hx Capsules 10mg 60cap one po s bid [facility] 01[facility] , M.D. Metoprolol Tartrate 11/26 Hx Tablets 25mg 30tab 1 po qd s S. - Maghaydah 01/21 , M.D. Toprol XL 09/10 Hx Tablets 50mg 1 PO am ER 24HR and 2 S. - [facility] 11/[facility] , M.D. Coumadin 09/01 Hx Tablets 5mg 45tab as s Directed SChema Lynn M.D. Lisinopril 07/22 Hx Tablets 20mg 1 PO bid Qutayb S. - Maghaydah 07/22 , M.DChema Altace 07/22 Hx Tablets 10mg 60tab 2 po qd Qutayb s S[facility] 11/26 , M.DChema Vit E 06/11 Hx 400Units one po qd SChema Aida 11/14 Ellen Tylenol Arthritis 06/11 Hx 650mg. 2 PO Q 8HRS.prn [facility]Chema [facility] Ellen /2010 Toprol XL 06/11 Hx Tablets 50mg 30tab 1 po qd ER 24HR s Chema Lynn 09/10 Ellen /2007 Coumadin 06/11 Hx Solution 5mg 30uni as Rec ts directed [facility] Ellen Synthroid Hx Tablets 50mcg 90tab 1 PO qd Unknown /0000 s - 06/30 Hydrochlorothiazide Hx Tablets 25mg 30tab 1 PO qd Unknown /0000 s - 06/11 Altace Hx Capsules 10mg 90cap 1 PO qd Unknown /0000 s - 07/22 Ramipril Hx Capsules 10mg 180ca 1 po bid Unknown /0000 ps - 11/13 Meclizine HCL Hx Tablets 25mg 90tab 1 po tid Unknown /0000 s prn - 02/24 Aspirin 00 Hx Tablets 81mg 1 by Unknown /0000 mouth - every day 05/16 Vital Signs Date Vital Result Comment 07/16/2018 Height 63 inches 5'3" Weight 244.50 lb Heart Rate 82 /min BP Systolic Sitting 128 mmHg BP Diastolic Sitting 88 mmHg BMI (Body Mass Index) 43.3 kg/m2 07/04/2018 Height 63 inches 5'3" Weight 244.00 lb Heart Rate 90 /min BP Systolic Sitting 120 mmHg Rue lg cuff BP Diastolic Sitting 84 mmHg Rue lg cuff Respiratory Rate 16 /min BMI (Body Mass Index) 43.2 kg/m2 Ejection Fraction 50-55% as of 03/14/18 echo 07/01/2018 Height 63 inches 5'3" Weight 245.00 lb Heart Rate 76 /min BP Systolic 164 mmHg Rt arm BP Diastolic 108 mmHg Rt arm Respiratory Rate 16 /min BMI (Body Mass Index) 43.4 kg/m2 06/07/2018 Height 63 inches 5'3" Weight 245.00 lb without shoes Heart Rate 60 /min BP Systolic Sitting 122 mmHg rue large cuff BP Diastolic Sitting 80 mmHg rue large cuff BP Systolic Standing 116 mmHg rue large cuff BP Diastolic Standing 76 mmHg rue large cuff Respiratory Rate 16 /min BMI (Body Mass Index) 43.4 kg/m2 Ejection Fraction 50-55% 05/17/2018 Height 65 inches 5'5" Weight 243.19 lb Heart Rate 60 /min BP Systolic Sitting 124 mmHg rue lg cuff BP Diastolic Sitting 70 mmHg rue lg cuff BP Systolic Standing 120 mmHg BP Diastolic Standing 68 mmHg Respiratory Rate 16 /min BMI (Body Mass Index) 40.5 kg/m2 Ejection Fraction 50-55% 03/14/2018 echo 05/13/2018 Height 65 inches 5'5" Heart Rate 74 /min BP Systolic Sitting 132 mmHg BP Diastolic Sitting 70 mmHg 05/09/2018 Height 65 inches 5'5" Weight 245.00 lb Heart Rate 64 /min BP Systolic Sitting 130 mmHg rue lg cuff BP Diastolic Sitting 64 mmHg rue lg cuff Respiratory Rate 16 /min BMI (Body Mass Index) 40.8 kg/m2 Ejection Fraction 50-55% 03/14/2018 echo 03/21/2018 Height 65 inches 5'5" Weight 246.00 lb no shoes Heart Rate 70 /min BP Systolic Sitting 120 mmHg lue lg cuff BP Diastolic Sitting 76 mmHg lue lg cuff BMI (Body Mass Index) 40.9 kg/m2 Ejection Fraction 50-55% echo 03/14/2018 02/19/2018 Height 65 inches 5'5" Weight 246.00 lb w/shoes Heart Rate 60 /min BP Systolic Sitting 128 mmHg lue lg cuff BP Diastolic Sitting 80 mmHg lue lg cuff BMI (Body Mass Index) 40.9 kg/m2 Ejection Fraction 50-55% echo 12/08/2013 06/04/2017 Height 65 inches 5'5" Weight 246.75 lb with shoes Heart Rate 62 /min BP Systolic Sitting 138 mmHg LA lrg cuff BP Diastolic Sitting 78 mmHg LA lrg cuff BMI (Body Mass Index) 41.1 kg/m2 Ejection Fraction 50%-55% echo 12/08/13 09/14/2016 Height 65 inches 5'5" Weight 248.00 lb with shoes Heart Rate 68 /min BP Systolic Sitting 130 mmHg LA lrg cuff BP Diastolic Sitting 76 mmHg LA lrg cuff BMI (Body Mass Index) 41.3 kg/m2 Ejection Fraction 50%-55% 02/08/2016 Height 65 inches 5'5" Weight 249.25 lb with out shoes Heart Rate 54 /min BP Systolic 120 mmHg LA lrg cuff BP Diastolic 78 mmHg LA lrg cuff BMI (Body Mass Index) 41.5 kg/m2 Ejection Fraction 50% - 55% 12/08/13 echo 06/21/2015 Height 65 inches 5'5" Weight 243.00 lb Heart Rate 64 /min BP Systolic 120 mmHg LA Large BP Diastolic 84 mmHg LA Large BMI (Body Mass Index) 40.4 kg/m2 Ejection Fraction 50-55% ECHO 12/08/14 12/23/2014 Height 65 inches 5'5" Weight 241.00 lb Heart Rate 72 /min BP Systolic Sitting 146 mmHg BP Diastolic Sitting 88 mmHg Respiratory Rate 16 /min BMI (Body Mass Index) 40.1 kg/m2 10/13/2014 Height 65 inches 5'5" Weight 238.00 lb Heart Rate 60 /min BP Systolic Sitting 122 mmHg LA, large BP Diastolic Sitting 82 mmHg LA, large BMI (Body Mass Index) 39.6 kg/m2 08/31/2014 Height 65 inches 5'5" Weight 236.50 lb Heart Rate 82 /min BP Systolic Sitting 164 mmHg LA< reg BP Diastolic Sitting 96 mmHg LA< reg BMI (Body Mass Index) 39.4 kg/m2 02/25/2014 Height 65 inches 5'5" Weight 231.75 lb without shoes Heart Rate 66 /min BP Systolic Sitting 124 mmHg LA lg cuff BP Diastolic Sitting 90 mmHg LA lg cuff BP Systolic Standing 112 mmHg LA lg cuff BP Diastolic Standing 84 mmHg LA lg cuff Respiratory Rate 16 /min BMI (Body Mass Index) 38.6 kg/m2 01/14/2014 Height 65 inches 5'5" Weight 233.00 lb Heart Rate 60 /min BP Systolic Sitting 158 mmHg left arm, large cuff BP Diastolic Sitting 88 mmHg left arm, large cuff BP Systolic Standing 140 mmHg left arm, large cuff BP Diastolic Standing 86 mmHg left arm, large cuff Respiratory Rate 20 /min BMI (Body Mass Index) 38.8 kg/m2 01/01/2014 Height 65 inches 5'5" Weight 232.00 lb Heart Rate 60 /min BP Systolic Sitting 128 mmHg left arm, large cuff BP Diastolic Sitting 82 mmHg left arm, large cuff BP Systolic Standing 118 mmHg left arm, large cuff BP Diastolic Standing 80 mmHg left arm, large cuff Respiratory Rate 20 /min BMI (Body Mass Index) 38.6 kg/m2 12/11/2013 Height 65 inches 5'5" Weight 234.00 lb Heart Rate 60 /min BP Systolic Sitting 134 mmHg LA reg cuff BP Diastolic Sitting 86 mmHg LA reg cuff BP Systolic Standing 136 mmHg LA BP Diastolic Standing 84 mmHg LA BP Systolic Recheck 123 mmHg LA home BP cuff BP Diastolic Recheck 89 mmHg LA home BP cuff Respiratory Rate 16 /min BMI (Body Mass Index) 38.9 kg/m2 11/27/2013 Height 65 inches 5'5" Weight 229.00 lb Heart Rate 64 /min BP Systolic Sitting 124 mmHg BP Diastolic Sitting 70 mmHg BMI (Body Mass Index) 38.1 kg/m2 11/13/2013 Heart Rate 56 /min BP Systolic Sitting 142 mmHg BP Diastolic Sitting 78 mmHg Respiratory Rate 16 /min 04/28/2013 Heart Rate 60 /min BP Systolic Sitting 138 mmHg BP Diastolic Sitting 92 mmHg Respiratory Rate 16 /min 04/25/2013 Height 65 inches 5'5" Weight 232.00 lb Heart Rate 120 /min BP Systolic 118 mmHg BP Diastolic 72 mmHg BMI (Body Mass Index) 38.6 kg/m2 08/21/2012 Height 65 inches 5'5" Weight 231.00 lb Heart Rate 68 /min BP Systolic Sitting 162 mmHg BP Diastolic Sitting 90 mmHg Respiratory Rate 20 /min BMI (Body Mass Index) 38.4 kg/m2 01/10/2012 Height 65 inches 5'5" Weight 230.00 lb Heart Rate 59 /min BP Systolic 124 mmHg BP Diastolic 70 mmHg BMI (Body Mass Index) 38.3 kg/m2 06/02/2011 Height 65 inches 5'5" Weight 235.00 lb Heart Rate 60 /min BP Systolic 124 mmHg BP Diastolic 78 mmHg BMI (Body Mass Index) 39.1 kg/m2 11/25/2010 Height 65 inches 5'5" Weight 237.00 lb Heart Rate 59 /min BP Systolic Sitting 160 mmHg L BP Diastolic Sitting 90 mmHg L BMI (Body Mass Index) 39.4 kg/m2 06/15/2010 Height 65 inches 5'5" Weight 233.00 lb Heart Rate 68 /min BP Systolic Sitting 134 mmHg BP Diastolic Sitting 80 mmHg BMI (Body Mass Index) 38.8 kg/m2 10/22/2009 Height 65 inches 5'5" Weight 235.00 lb Heart Rate 68 /min BP Systolic Sitting 168 mmHg BP Diastolic Sitting 90 mmHg BMI (Body Mass Index) 39.1 kg/m2 06/30/2009 Height 65 inches 5'5" Weight 231.00 lb Heart Rate 60 /min BP Systolic Sitting 124 mmHg L BP Diastolic Sitting 90 mmHg L BMI (Body Mass Index) 38.4 kg/m2 01/21/2009 Height 65 inches 5'5" Weight 229.00 lb Heart Rate 72 /min BP Systolic Sitting 152 mmHg L BP Diastolic Sitting 80 mmHg L BMI (Body Mass Index) 38.1 kg/m2 11/26/2008 Height 65 inches 5'5" Weight 231.00 lb Heart Rate 67 /min BP Systolic Sitting 150 mmHg BP Diastolic Sitting 100 mmHg BMI (Body Mass Index) 38.4 kg/m2 09/10/2008 Height 65 inches 5'5" Weight 228.00 lb Heart Rate 70 /min reg BP Systolic Sitting 148 mmHg BP Diastolic Sitting 100 mmHg BMI (Body Mass Index) 37.9 kg/m2 07/22/2008 Height 65 inches 5'5" Weight 220.00 lb Heart Rate 60 /min BP Systolic Sitting 150 mmHg BP Diastolic Sitting 100 mmHg BMI (Body Mass Index) 36.6 kg/m2 06/11/2008 Height 65 inches 5'5" Weight 220.00 lb Heart Rate 71 /min BP Systolic Sitting 150 mmHg L BP Diastolic Sitting 100 mmHg L BMI (Body Mass Index) 36.6 kg/m2 Results Test Date Test Result H/L Range Note CBC Auto Diff 05/02/2018 White Blood Count 7.3 10^3/uL 3.5-10.8 Red Blood Count 4.77 10^6/uL 4.00-5.40 Hemoglobin 15.1 g/dL 12.0-16.0 Hematocrit 45 % 35-47 Mean Corpuscular Volume 95 fL 80-97 Mean Corpuscular Hemoglobin 32 pg High 27-31 Mean Corpuscular HGB Conc 33 g/dL 31-36 Red Cell Distribution Width 14 % 10.5-15 Platelet Count 144 10^3/uL Low 150-450 Mean Platelet Volume 9.5 um3 7.4-10.4 Abs Neutrophils 4.3 10^3/uL 1.5-7.7 Abs Lymphocytes 2.2 10^3/uL 1.0-4.8 Abs Monocytes 0.7 10^3/uL 0-0.8 Abs Eosinophils 0.1 10^3/uL 0-0.6 Abs Basophils 0.1 10^3/uL 0-0.2 Abs Nucleated RBC 0 10^3/uL Granulocyte % 58.6 % 38-83 Lymphocyte % 29.9 % 25-47 Monocyte % 9.2 % High 0-7 Eosinophil % 1.6 % 0-6 Basophil % 0.7 % 0-2 Nucleated Red Blood Cells % 0.1 Inr/Protime 05/02/2018 Inr 0.92 0.77-1.02 Laboratory test finding 05/02/2018 Partial Thrombo Time 21.0 seconds Low 26.0-36.3 PTT Basic Metabolic Panel 05/02/2018 Sodium 141 mmol/L 135-145 Potassium 4.1 mmol/L 3.5-5.0 Chloride 106 mmol/L 101-111 Co2 Carbon Dioxide 28 mmol/L 22-32 Anion Gap 7 mmol/L 2-11 Glucose 114 mg/dL High 70-100 Blood Urea Nitrogen 14 mg/dL 6-24 Creatinine 0.80 mg/dL 0.51-0.95 BUN/Creatinine Ratio 17.5 8-20 Calcium 9.5 mg/dL 8.6-10.3 Egfr Non- 69.7 >60 Egfr 84.4 >60 1 Order 04/23/2018 Holter Monitor <pending> Order 12/08/2013 Holter Monitor <pending> Urinalysis 11/01/2013 Urine Color Yellow Urine Appearance Clear Urine Specific [place] 1.058 High 1.010-1.030 2 Urine Esterase Negative Negative Urine Nitrate Negative Negative Urine Urobilinogen Negative E.U./dL Negative Urine Protein Negative mg/dL Negative Urine pH 8.0 5-9 Urine Blood Negative Negative Urine Ketones Trace mg/dL Negative Urine Bilirubin Negative Negative Urine Glucose Negative mg/dL Negative Lipid Profile (Trig/Chol/HDL) 12/12/2011 Triglyceride 90 mg/dL 40-200 Cholesterol 158 mg/dL Less Than 200 3 High Density Lipoprotein 41 mg/dL 40-60 4 Cholesterol/HDL Ratio 3.85 AVERAGE 1-4.44 Low Density Lipoprotein 99 mg/dL Less Than 100 5 Comp Metabolic Panel 12/12/2011 Sodium 137 mmol/L 135-145 Potassium 4.0 mmol/L 3.5-5.0 Chloride 105 mmol/L 101-111 Co2 (Carbon Dioxide) 24.0 mmol/L 22-32 Anion Gap 8.0 mmol/L 2-11 6 Glucose 105 mg/dL High 70-100 BUN 13 mg/dL 6-24 Creatinine 0.8 mg/dL 0.50-1.40 One Over Creatinine 1.25 BUN/Creatinine Ratio 16.3 8-20 Calcium 8.3 mg/dL 8.1-9.9 Total Protein 6.3 GM/DL 6.2-8.1 Albumin 3.8 GM/DL 3.2-5.2 Globulin 2.5 GM/DL 2-4 Albumin/Globulin Ratio 1.5 1-3 Bilirubin Total 0.8 mg/dL 0.4-1.5 7 Alkaline Phosphatase 62 U/L 30-110 Alt (SGPT) 30 U/L 14-54 Ast (Sgot) 27 U/L 12-42 eGFR Non- 71.1 > 60 eGFR 91.5 > 60 8 Lipid Panel - [facility] 12/12/2011 CPK (Creatine Kinase) 155 U/L 0-170 Lipid Profile (Trig/Chol/HDL) 06/24/2010 Triglyceride 69 mg/dL 40-200 Cholesterol 156 mg/dL Less Than 200 9 High Density Lipoprotein 47 mg/dL 40-60 10 Cholesterol/HDL Ratio 3.32 AVERAGE 1-4.44 Low Density Lipoprotein 95 mg/dL Less Than 100 11 Laboratory test finding 06/24/2010 TSH 2.13 MIU/ML 0.34-5.60 T3 Total 2.06 NG/ML High 0.5-1.7 Thyroxine 7.6 g/dL 5-12 Basic Metabolic Panel 06/24/2010 Sodium 142 mmol/L 135-145 Potassium 4.5 mmol/L 3.5-5.0 Chloride 110 mmol/L 101-111 Co2 (Carbon Dioxide) 28.0 mmol/L 22-32 Anion Gap 4.0 mmol/L 2-11 12 Glucose 89 mg/dL 70-100 13 BUN 14 mg/dL 6-24 Creatinine 0.80 mg/dL 0.50-1.40 One Over Creatinine 1.20 BUN/Creatinine Ratio 17.5 8-20 Calcium 8.7 mg/dL 8.1-9.9 eGFR Non- 75.8 > 60 eGFR 91.7 > 60 14 Liver Function Panel 06/24/2010 Total Protein 5.9 GM/DL Low 6.2-8.1 Albumin 4.0 GM/DL 3.2-5.2 Globulin 1.9 GM/DL Low 2-4 Albumin/Globulin Ratio 2.1 1-3 Bilirubin Total 0.9 mg/dL 0.4-1.5 15 Bilirubin Direct 0.1 mg/dL 0.1-0.5 Indirect Bilirubin 0.8 mg/dL 0.3-1.0 16 Alkaline Phosphatase 60 U/L 30-110 Alt (SGPT) 27 U/L 14-54 Ast (Sgot) 25 U/L 12-42 Surgical Pathology 05/27/2010 Surgical Pathology <SEE NOTE > 17 1 Because ethnic data is not always readily available, this report includes an eGFR for both -Americans and non- Americans. The National Kidney Disease Education Program (NKDEP) does not endorse the use of the MDRD equation for patients that are not between the ages of 18 and 70, are , have extremes of body size, muscle mass, or nutritional status, or are non- or non-. According to the National Kidney Foundation, irrespective of diagnosis, the stage of the disease is based on the level of kidney function: Stage Description GFR(mL/min/1.73 m(2)) 1 Kidney damage with normal or decreased GFR 90 2 Kidney damage with mild decrease in GFR 60-89 3 Moderate decrease in GFR 30-59 4 Severe decrease in GFR 15-29 5 Kidney failure <15 (or dialysis) 2 Refractometer result [] confirmed by [employer] at 2233 on 11/01/13. 3 CHOLESTEROL INTERPRETATION: Desirable: Less than 200 MG/DL Borderline-High Risk: 200-239 MG/DL High-Risk: 240 MG/DL and over 4 HDL INTERPRETATION: Undesirable: High Risk: Less than 40 MG/DL Desirable: Low Risk: Greater than 60 MG/DL 5 LDL INTERPRETATION: Low Risk Optimal Level: LDL Less than 100 MG/DL Near or Above Optimal: LDL 100-129 MG/DL Borderline High Risk: LDL 130-159 MG/DL High Risk: LDL 160-189 MG/DL Very High Risk: LDL Greater than 189 MG/DL 6 Anion gap measurement may be of limited value in the presence of any alkalosis, especially in a combined acid base disorder. . 7 A metabolite of Naproxen, O-desmethylnaproxen, has been shown to interfere with the [place] method for measuring total bilirubin. Samples from patients who have taken Naproxen have shown spurious elevation in total bilirubin levels. 8 Because ethnic data is not always readily available, this report includes an eGFR for both -Americans and non- Americans. The National Kidney Disease Education Program (NKDEP) does not endorse the use of the MDRD equation for patients that are not between the ages of 18 and 70, are , have extremes of body size, muscle mass, or nutritional status, or are non- or non-. According to the National Kidney Foundation, irrespective of diagnosis, the stage of the disease is based on the level of kidney function: Stage Description GFR(mL/min/1.73 m(2)) 1 Kidney damage with normal or decreased GFR 90 2 Kidney damage with mild decrease in GFR 60-89 3 Moderate decrease in GFR 30-59 4 Severe decrease in GFR 15-29 5 Kidney failure <15 (or dialysis) 9 CHOLESTEROL INTERPRETATION: Desirable: Less than 200 MG/DL Borderline-High Risk: 200-239 MG/DL High-Risk: 240 MG/DL and over 10 HDL INTERPRETATION: Undesirable: High Risk: Less than 40 MG/DL Desirable: Low Risk: Greater than 60 MG/DL 11 LDL INTERPRETATION: Low Risk Optimal Level: LDL Less than 100 MG/DL Near or Above Optimal: LDL 100-129 MG/DL Borderline High Risk: LDL 130-159 MG/DL High Risk: LDL 160-189 MG/DL Very High Risk: LDL Greater than 189 MG/DL 12 Anion gap measurement may be of limited value in the presence of any alkalosis, especially in a combined acid base disorder. . 13 Note change in reference range as of 05/14/08. The change was based on recommendations from the [place] [employer]. 14 Because ethnic data is not always readily available, this report includes an eGFR for both -Americans and non- Americans. The National Kidney Disease Education Program (NKDEP) does not endorse the use of the MDRD equation for patients that are not between the ages of 18 and 70, are , have extremes of body size, muscle mass, or nutritional status, or are non- or non-. According to the National Kidney Foundation, irrespective of diagnosis, the stage of the disease is based on the level of kidney function: Stage Description GFR(mL/min/1.73 m(2)) 1 Kidney damage with normal or decreased GFR 90 2 Kidney damage with mild decrease in GFR 60-89 3 Moderate decrease in GFR 30-59 4 Severe decrease in GFR 15-29 5 Kidney failure <15 (or dialysis) 15 A metabolite of Naproxen, O-desmethylnaproxen, has been shown to interfere with the [place] method for measuring total bilirubin. Samples from patients who have taken Naproxen have shown spurious elevation in total bilirubin levels. 16 Please note updated reference range, effective 04/14/10 17 ---- RUN DATE: 05/31/10 [facility] NMI LIVE PAGE 1 RUN TIME: 1308 Specimen Inquiry RUN USER: INTERFACE -- Name: ARY CANDELARIA Status: REG REF Re05/27/10 Age/Sex: 70/F Unit#: [id number] Location: [facility] : 42 -- Specimen: [id number] Spec Date: 05/27/[address]: Danny masters MD Spec Type: SURGICAL P Received: 05/27/10-1049 Copies to: Nathalie tidwell MD SPECIMEN COLON POLYP AT 15 CM. HISTORY POST-OP DIAGNOSIS: To terminal ileum. Polyp at 15 cm. CLINICAL INFORMATION: Screening colonoscopy. GROSS DESCRIPTION The specimen is received in formalin labelled Ary Candelaria, Colon Polyp at 15 cm., and consists of one fragment of russell-yellow tissue measuring 0.3 x 0.2 x 0.1 cm. Submitted entirely, one cassette. DIAGNOSIS Colon, 15 cm., biopsy: Hyperplastic polyp. Signed Electronically by: SARABJIT DEGROOT MD 05/31/10 1307 -- -- DEPARTMENT OF PATHOLOGY, [address] [place] [address] [facility] Permit [id number] Sarabjit Degroot M.D. Director Juan M Martines M.D. Java Lead Engineer Dir abel -- Procedures Date CPT Code Description Status 06/20/2018 33726 EKG Tracing & Interpretation Completed 06/07/2018 33324 EKG Tracing & Interpretation Completed 06/07/2018 45607 EKG Tracing & Interpretation Completed 06/05/2018 68133 Pace Maker Eval W/Iterative Adjment Dual Lead Completed 05/22/2018 20790 Removal Skin Tags Up To 15 Completed 05/22/2018 77295 Biopsy Skin Lesion Single Completed 05/17/2018 02131 EKG Tracing & Interpretation Completed 05/03/2018 39302 Pace Maker Eval W/Iterative Adjment Dual Lead Completed 05/02/2018 77841 Moderate Sedation Services; Same Phys Each Additional Completed 15 Mins 05/02/2018 62894 Moderate Sedation Services; Same Phys Intl 15 Mins; PT Completed >=5 Years 05/02/2018 21468 Perm Pacemaker Av Sequential Atrial And Ventricular Completed 04/24/2018 59074 Holter Monitor Review (24 hr)dr review & interp only Completed 04/23/2018 01170 ECG Monitor/Recording W/Visual Superimposition Scanning Completed 03/21/2018 18538 EKG Tracing & Interpretation Completed 03/19/2018 72797 Holter Monitor Review (24 hr)dr review & interp only Completed 03/14/2018 73819 ECHO Transthoracic, Real-Time 2D With Doppler And Color Completed Flow 03/14/2018 03510 ECHO Transthoracic, Real-Time 2D With Doppler And Color Completed Flow 03/14/2018 56173 ECG Monitor/Recording W/Visual Superimposition Scanning Completed 02/19/2018 44738 EKG Tracing & Interpretation Completed 02/15/2018 38330 Treadmill Interp/Report Only Completed 02/15/2018 17065 Stress Test Supervsn W/Out I/R Completed 06/04/2017 54431 EKG Tracing & Interpretation Completed 09/14/2016 66565 EKG Tracing & Interpretation Completed 02/08/2016 35201 EKG Tracing & Interpretation Completed 09/24/2015 Mammogram Completed 07/09/2015 Mammogram Completed 06/21/2015 10937 EKG Tracing & Interpretation Completed 10/13/2014 45689 EKG Tracing & Interpretation Completed 08/31/2014 52675 EKG Tracing & Interpretation Completed 02/25/2014 20095 EKG Tracing & Interpretation Completed 01/01/2014 16990 EKG Tracing & Interpretation Completed 12/08/2013 05180 ECHO Transthoracic, Real-Time 2D With Doppler And Color Completed Flow 12/04/2013 96674 Holter Monitor Review (24 hr)dr review & interp only Completed 11/27/2013 39215 EKG Tracing & Interpretation Completed 04/28/2013 59137 EKG Tracing & Interpretation Completed 04/25/2013 34617 EKG Tracing & Interpretation Completed 08/21/2012 98922 EKG Tracing & Interpretation Completed 01/10/2012 21374 EKG Tracing & Interpretation Completed 12/07/2011 99336 ECHO Transthoracic, Real-Time 2D With Doppler And Color Completed Flow 06/06/2011 63659 ECHO Transthoracic, Real-Time 2D With Doppler And Color Completed Flow 06/02/2011 84754 EKG Tracing & Interpretation Completed 11/25/2010 05356 EKG Tracing & Interpretation Completed 06/15/2010 71970 EKG Tracing & Interpretation Completed 05/27/2010 Colonoscopy Completed 10/22/2009 54495 EKG Tracing & Interpretation Completed 06/30/2009 94153 EKG Tracing & Interpretation Completed 06/22/2009 94953 ECHO Transthoracic, Real-Time 2D With Doppler And Color Completed Flow 12/11/2008 Mammogram Completed 11/26/2008 98350 EKG Tracing & Interpretation Completed 07/22/2008 05441 EKG Tracing & Interpretation Completed 06/30/2008 41190 Color Flow Doppler/Interp & Reprt Completed 06/30/2008 45619 Pulse Wave/Continuous-Interp.RPT Completed 06/30/2008 71382 Echocardiography, Transesophageal, Real Time W/Image 2D Completed W/W/O M-M 06/30/2008 79765 Pulse Wave/Continuous-Interp.RPT Completed 06/15/2008 04960 Pulse Doppler & Continuous Wave Completed 06/15/2008 19743 Pulse Doppler & Continuous Wave Completed 06/15/2008 47924 Pulse Doppler & Continuous Wave Completed 06/15/2008 06215 Echocardiogram Completed 06/15/2008 27802 Echocardiogram Completed 06/15/2008 23146 Color Doppler Completed 06/15/2008 53133 Color Doppler Completed 06/11/2008 64659 EKG Tracing & Interpretation Completed 06/11/2008 93331 EKG Tracing & Interpretation Completed 06/08/2008 32509 Treadmill Interp/Report Only Completed 06/08/2008 20139 Stress Test Supervsn W/Out I/R Completed 06/08/2008 94939 Stress Test Supervsn W/Out I/R Completed Encounters Type Date Location Provider CPT E/M Dx Office Visit 07/16/2018 [facility] Bryan Naranjo M.D. 34909 I48.0 12:15p [facility] I82.622 I61.1 Office Visit 07/04/2018 2:00p [facility] [place], 60308 I48.0 Pathological Technician N.P. I10 Z95.0 Office Visit 06/07/2018 1:30p [facility] Lo, 96982 I48.0 Pathological Technician N.P. Z95.0 I10 I45.10 Office Visit 05/22/2018 2:20p [facility] [place] [address] L82.1 C44.311 L91.8 R20.8 L53.8 Z78.9 Office Visit 05/17/2018 9:30a [facility] Marylu Platt M.D. 93272 Z95.0 Pathological Technician I82.622 I48.0 Office Visit 05/13/2018 4:40p [facility] Marylu Platt M.D. 97753 R22.32 Pathological Technician I49.5 Z95.0 Office Visit 05/09/2018 9:30a [facility] Lo, 04915 I49.5 Pathological Technician N.P. I48.92 R94.31 E03.9 I10 Office Visit 03/21/2018 2:30p [facility] Grace S. Wally, N.P. 67107 I48.3 I10 R94.31 E78.2 Office Visit 02/19/2018 1:10p [facility] Nathalie Lynn, 59477 I48.3 MSamuel I10 E78.2 R94.31 Office Visit 02/15/2018 10:51a [facility],sarah Pearson, 33408 R07.89 Hospitalists M.DChema I48.1 I10 E03.9 Office Visit 02/14/2018 10:50a [facility] Nayeli Sewell, 33976 R07.9 Assoc,pc [employer] Hospitalists R00.2 I48.91 J44.9 Office Visit 06/04/2017 3:00p [facility] Qutaybeh S. Maghaydah, 95022 E78.2 M.D. I48.91 I10 R94.31 Office Visit 01/29/2017 3:10p [facility] [place] [address] L82.1 L90.5 Office Visit 09/14/2016 4:00p [facility] Qutaybeh S. Maghaydah, 98145 I10 M.D. E78.2 I48.0 R94.31 Office Visit 02/08/2016 11:00a [facility] Qutaybeh S. Maghaydah, 20049 I10 M.D. I48.91 E78.2 R94.31 Office Visit 06/21/2015 3:00p [facility] Qutaybeh S. Maghaydah, 88290 I10 M.D. I48.91 E78.2 R94.31 Office Visit 12/23/2014 3:00p [facility] Courtney Beatty M.D. 13894 401.9 [facility] 431 427.31 Office Visit 10/13/2014 11:00a [facility] ISAÍAS Nuno 34223 427.31 401.9 272.2 794.31 Office Visit 08/31/2014 3:00p [facility] Qutaybeh S. Maghaydah, 47670 427.31 M.D. 401.9 272.2 794.31 Office Visit 02/25/2014 2:40p [facility] Qutaybeh S. Maghaydah, 46127 427.31 M.D. 401.9 794.31 272.2 Office Visit 01/14/2014 3:30p [facility] ISAÍAS Nuno 18479 427.31 401.9 431 Office Visit 01/01/2014 2:00p [facility] ISAÍAS Nuno 39171 401.9 427.31 Office Visit 12/17/2013 2:00p [facility] Courtney Beatty M.D. 97109 431 Services Of Pathological Technician Office Visit 12/11/2013 9:30a [facility] ISAÍAS Nuno 92567 401.9 427.31 431 Office Visit 11/27/2013 4:00p [facility] Nathalie Lynn, 02263 401.9 M.DChema 272.2 427.31 794.31 Office Visit 11/13/2013 3:30p [facility] Courtney Beatty M.D. 92425 431 Services Of Pathological Technician Office Visit 11/07/2013 12:17p [facility],sarah Pugh D.O. 70930 431 Hospitalists 427.31 401.9 272.2 Office Visit 11/06/2013 1:37p [facility] Yvan Bergman M.D. 41231 431 Services Of Pathological Technician 401.9 Office Visit 11/06/2013 12:16p [facility],sarah Pugh 02196 431 Hospitalists D.O. 427.31 401.9 272.2 Office Visit 11/05/2013 1:36p [facility] Yvan Bergman M.D. 92479 431 Services Of Pathological Technician 401.9 Office Visit 11/05/2013 12:16p [facility],sarah Pugh 50659 431 Hospitalists D.O. 427.31 401.9 272.2 Office Visit 11/04/2013 1:36p [facility] Yvan Bergman M.D. 74494 431 Services Of Pathological Technician 401.9 Office Visit 11/04/2013 12:15p [facility],sarah Pugh 04381 431 Hospitalists D.O. 427.31 401.9 Office Visit 11/03/2013 1:35p [facility] Yvan Bergman M.D. 15738 431 Services Of Pathological Technician 401.9 Office Visit 11/03/2013 12:14p [facility],sarah Low 02761 431 Hospitalists MSamuel 427.31 401.9 Office Visit 11/02/2013 12:14p [facility],sarah Low 53934 427.31 Hospitalists M.D. 401.9 431 Office Visit 11/02/2013 1:34p [facility] Courtney Beatty M.D. 25967 431 Services Of Pathological Technician 401.9 Office Visit 11/01/2013 12:13p [facility], [address] 431 Hospitalists M.D. 427.31 401.9 272.2 Office Visit 11/01/2013 1:31p [facility] Courtney Beatty M.D. 94032 431 Services Of Pathological Technician 401.9 Office Visit 04/28/2013 2:30p [facility] [place] [address] 427.31 401.1 785.0 Office Visit 04/25/2013 2:40p [facility] Qutaybeh S. Maghaydah, 84924 424.0 M.D. 401.1 427.31 794.31 785.1 785.0 Office Visit 08/21/2012 3:20p [facility] Qutaybeh S. Maghaydah, 60781 424.0 M.D. 401.1 427.31 794.31 Office Visit 01/10/2012 3:40p [facility] Qutaybeh S. Maghaydah, 49246 794.31 M.D. 427.31 424.0 401.1 Office Visit 06/02/2011 3:20p [facility] Qutaybeh S. Maghaydah, 12841 427.31 M.D. 401.1 424.0 794.31 Office Visit 11/25/2010 2:00p [facility] Qutaybeh S. Maghaydah, 35050 427.31 M.D. 401.1 424.0 Office Visit 06/15/2010 9:20a [facility] Qutaybeh S. Maghaydah, 66583 427.31 M.D. 785.1 401.1 424.0 Office Visit 10/22/2009 3:10p [facility] Qutaybeh S. Maghaydah, 62575 427.31 M.D. 401.1 785.1 785.0 Office Visit 06/30/2009 11:00a [facility] Qutaybeh S. Maghaydah, 44165 427.31 M.D. 424.0 401.1 Office Visit 01/21/2009 10:40a [facility] Nathalie Lynn, 61062 427.31 M.D. 401.0 424.0 Office Visit 11/26/2008 10:00a [facility] Nathalie Lynn, 41373 427.31 M.D. 424.0 401.0 Office Visit 09/10/2008 8:20a [facility] Nathalie Lynn, 55515 427.31 M.D. 424.0 401.0 785.1 Office Visit 07/22/2008 11:40a [facility] Nathalie Lynn, 99418 427.31 M.D. 424.0 401.0 785.1 Office Visit 06/30/2008 9:00a [facility] Nathalie Lynn, 02901 427.31 M.D. 424.0 401.0 785.1 Office Visit 06/11/2008 9:40a [facility] Nathalie Lynn, 72473 786.05 M.D. 785.1 401.0 427.31 Plan of Care Future Appointment(s):08/30/2018 2:00 pm - Bryan Naranjo M.D. at [facility]08/27/2018 2:00 pm - Grace Lo N.P. at [facility]07/16/2018 - Bryan Naranjo M.D.I48.0 Paroxysmal atrial fibrillationFollow up:Follow up in 6 weeks. Ok to overbookRecommendations:I am going to order a CT angiogram of your brain. 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
[2018-08-09 09:00] LABS: EGFR Non-African American 61.7 (>60)
[2018-08-09 10:57] VITALS: BP 125/88
== END 2018-08-09 09:55 | disposition home or self-care (01) ==
LOC: ED 07:55
DX: R42 Dizziness and giddiness (principal); E07.9 Disorder of thyroid, unspecified; E78.00 Pure hypercholesterolemia, unspecified; I10 Essential (primary) hypertension; Z85.828 Personal history of other malignant neoplasm of skin
CPT/HCPCS: 36415; 70450; 80048; 85025; 85610; 93005; 96361; 96374; 96375; 99283; J1240